=== PATIENT | male | born 1950 | race Caucasian/White ===

== ENCOUNTER → 2016-02-20 | Outpatient (CLI) | payer OTHER ==
[~2016-02-20] MED LIST: APIX1TAB3 PO; ASPI81TA21 PO; ATV/1 SL; CHLO50TA PO; CHOL1TAB42 PO; CYAN500T13 PO; FINA5TAB PO; FOLI1TAB8 PO; FURO40TA3 PO; HMLI SC; HYDR-5688 PO; IMDSR30 PO; INSDGI SC; INSDGIPEN SC; INSPMPHMLG SC; ISOS30TA3 PO; LISI40TA PO; MAGN400C2 PO; MELO15TA10 PO; METF1000 PO; METO-217 PO; POLY335025 PO; POTA1080 PO; POTA1TAB97 PO; ROSU5TAB PO; RXC5 PO; SENN8.6T7 PO; SPIR25TA PO; TAMS0.4C38 PO
[2016-02-20 13:14] LABS: BASO % 0.2 %; BASO ABS # 0.03 K/uL (0-0.2); COMPLETE YES; EOS % 1.9 %; HEMATOCRIT 46.1 % (42-52); IG% 0.5 %; LYMPH % 17.1 %; LYMPH ABS # 2.27 K/uL (1.2-3.4); MEAN CELL VOLUME 91.3 fL (80-100); MEAN CORPUSCULAR HEMOGLOBIN 32.9 pg (25-34); MEAN PLATELET VOLUME 11.1 fL (7.4-10.4); MONO % 9.6 %; NEUT % 70.7 %; PLATELET COUNT 217 K/uL (130-400); RED BLOOD COUNT 5.05 M/uL (4.7-6.1); WHITE BLOOD COUNT 13.29 K/uL (4.8-10.8)
[2016-02-20 13:23] LABS: PARTIAL THROMBOPLASTIN RATIO 1.1; PROTHROMBIN TIME (PATIENT) 10.6 SECONDS (9.0-12.0)
[2016-02-20 13:52] LABS: BLOOD UREA NITROGEN 29 mg/dl (7-18); CALCIUM 9.6 mg/dl (8.5-10.1); CARBON DIOXIDE 31 mmol/L (21-32); CHLORIDE 98 mmol/L (98-107); GLUCOSE 110 mg/dl (70-99); MAGNESIUM 1.9 mg/dl (1.8-2.4); POTASSIUM 3.3 mmol/L (3.5-5.1); SODIUM 139 mmol/L (136-145)
== END | disposition home or self-care (01) ==
LOC: C.LAB 12:08
PROVIDERS: ATTEND Internal Medicine Interventional Cardiology
DX: Z01.818 Encounter for other preprocedural examination (principal); I48.92 Unspecified atrial flutter

== ENCOUNTER → 2016-02-25 | Day surgery (SDC) | payer OTHER ==
[~2016-02-25] VITALS: Ht 185.4 cm; Wt 152.0 kg
[~2016-02-25] MED LIST changes: +ACETAMINOPHEN 325 MG TAB PO PRN; -ATV/1 SL; +FENTANYL CITRATE INJ 50 MCG/1 ML 2 ML VIAL ONE; -FOLI1TAB8 PO; +HEPARIN SOD (PORCINE) 1000 UNIT/ML 10 ML VIAL ONE; -HYDR-5688 PO; +MIDAZOLAM HCL 1 MG/ML 2ML VIAL ONE; +NITROGLYCERIN/D5W 100MCG/ML 20ML SYR ONE; +NiCARDipine HCL INJ 2.5 MG/ML 10 ML AMP ONE; -POLY335025 PO; -RXC5 PO; -SENN8.6T7 PO; +SODIUM CHLORIDE 0.9% 1000ML 1,000 ML IV SCH; -SPIR25TA PO
[2016-02-25 10:30] VITALS: BP 138/74; PULSE 65; TEMP 36.5; O2SAT 98; Ht 185.4 cm; Wt 152.0 kg
--- NOTE | 2016-02-25 12:30 | Procedure Note ---
Pre-Mod Sedation Assessment General Date of Moderate Sedation: Feb 25, 2016. Vital Signs: Vital Signs Past 12 Hours Date Time Temp Pulse Resp B/P Pulse Ox O2 Delivery O2 Flow Rate FiO2 02/25/16 12:16 60 16 140/72 95 Room Air 02/25/16 12:11 58 16 138/78 95 Room Air 02/25/16 10:30 36.5 65 16 138/74 98 Room Air Review Cardiovascular: regular rate, rhythm, no edema, no gallop, no JVD Abdomen: normal bowel sounds, non tender, soft Lungs: chest non-tender, lungs clear, normal breath sounds, no respiratory distress Airway Class: III Pre-Sedation Airway Assessment Oral Cavity: WNL Able to Visualize Vocal Cords: No Short Thick Neck: No Hx of Sleep Apnea: Yes Smoking Status: Former Smoker Mallampati Classification: Class III Procedure Planning Contraindications-for Mod Sed: None Yes Notes The planned sedation has been discussed with the patient and consent obtained. I have identified the patient, determined the appropriateness of sedation and have assessed the patient immediately prior to the procedure. All medicine(s) and interventions are by my order.
--- NOTE | 2016-02-25 12:31 | Procedure Note ---
Post-Mod Sedation Assessment General Date of Moderate Sedation Feb 25, 2016. Vital Signs: Vital Signs Past 12 Hours Date Time Temp Pulse Resp B/P Pulse Ox O2 Delivery O2 Flow Rate FiO2 02/25/16 12:16 60 16 140/72 95 Room Air 02/25/16 12:11 58 16 138/78 95 Room Air 02/25/16 10:30 36.5 65 16 138/74 98 Room Air Review - Discharge Criteria Vital Signs Stable: Yes Alert/Oriented/Conversant: Yes Returned to Baseline Mental St: Yes Nausea Absent/Minimal: Yes Pain/Discomfort/Absent/Minimal: Yes Normal/Baseline Respirations: Yes Active Bleeding?: No Pt Received D/C Instructions: Yes Prescriptions Given: Transmitted Specific Proced. D/C Criteria Distal Pulses Present (Cardiac: Yes Groin site assessed-Card Cath: N/A Voided Prior To Discharge: N/A Discharged Patients Adult Escort/Transportation: Yes
--- NOTE | 2016-02-25 12:42 | Discharge Instructions ---
Discharge Instructions Procedure Procedure Date: Feb 25, 2016. Reason for Visit: Cad * To Do*. Discharge Discharge Date: Feb 25, 2016. Discharge Diagnosis: Mild coronary artery disease, microvascular dysfunction Last Recorded Wt (Kilograms): 152 Anesthesia Post Anesthesia Instructions: After IV Sedation: * Do not drive today. May resume driving tomorrow * Do not make important decisions or sign legal documents today. * Call surgeon for: 1. Temperature elevations greater than 101 degrees F. 2. Uncontrollable pain. 3. Excessive bleeding. 4. Persistent nausea and vomiting. 5. Medication intolerance (nausea, vomiting or rash). * For nausea and vomiting use only clear liquids such as: tea, soda, bouillon until nausea subsides, then gradually increase diet as tolerated. * If you have any concerns or questions, call your surgeon's office. If physician is unavailable and it is an emergency, call 911 or go to the nearest emergency room. Instructions Activity Recommendations: limitations as noted below (Avoid flexing right wrist for next 24 hours. ), resume regular activity (In 48 hours), lifting limitation (Nothing heavier than 20lbs for next 48 hours), shower/bathe limit ( No soaking tub baths for next 72 hours) Recommended Home Diet: resume previous diet Allergies: Coded Allergies: Ciprofloxacin (Verified Adverse Reaction, Intermediate, DIAPHORETIC, NAUSEA, 12/25/15) Diclofenac (Verified Adverse Reaction, Intermediate, GO FROM ICE COLD TO HOT FLASHES, 12/25/15) Follow Up Follow-up with: Follow-up with Dr. Hunt as scheduled [facility] Recommendations: Call your doctor if: * Temperature above 101 degrees * Pain not relieved by pain medicine ordered * There is increased drainage or redness from any incision * You have any unanswered questions or concerns. Your Doctors Instructions noted above were prepared by provider Tyson Hunt. Patient Signature Section: Patient Instructions Signature Page Prem Buckner Patient (or Guardian) Signature/Date: I have read and understand the instructions given to me by my caregivers. Caregiver/RN/Doctor Signature/Date: The above-named patient and/or guardian has received patient instructions on this date. + Original Patient Signature Page (only) stays with chart. Please make copy for patient.
--- NOTE | 2016-02-25 12:54 | Cardiac Catheterization ---
Procedure Note Procedure Date Feb 25, 2016. Pre-Procedure Diagnosis Positive Stress Test, CAD AUC Score 7 Post-Procedure Diagnosis Mild CAD, Normal Intracardiac Pressures Procedure(s) Performed Coronary Angiography, Left Heart Cath Label Drier Dr. Hunt Maintenance And Utilities Supervisor(s) Salvatore Estimated Blood Loss 15 Medication(s) Fentanyl, Heparin, Nitroglycerin, Versed, Lidocaine 1% Summary of Findings Indication: Dyspnea on exertion/History of CAD/Indeterminant Stress Test Access: 5Fr Right Radial Artery Catheters: [place], JL3.5, Pigtail Findings: LM - Luminal irregularities LAD - Large vessel with luminal irregularities and sluggish flow Circumflex - Large vessel with luminal irregularities and sluggish flow Ramus - Small vessel with mild 20-30% ostial and mid segment stenosis, sluggish flow RCA - Dominant, large vessel, patent proximal stent with 40% in-stent restenosis , distal luminal irregularities, sluggish flow LVEDP - 11 Arterial Closure: TR Band Summary: 1. Mild-moderate coronary artery disease - Patent proximal RCA stent with 40% in-stent restenosis. 2. Diffuse sluggish flow suggestive of microvascular dysfunction 3. Normal intracardiac filling pressures Recommendations: Continue current ASA, statin Continue current diuretics and antihypertensive regimen Resume apixaban tonight Will add Imdur for microvascular dysfunction. Hemodynamics Rest Ao: 92/60/73 Final Ao: 99/61/77 LV: 105/2 Recommendations Medical therapy and/or Counseling Specimens None Radiation Exposure (mGy) 2303 Contrast (mls) 75 Opti Fluids (cc crystalloids) 75 Drains None Anesthesia Moderate Procedural Complication(s) None Disposition Delicatessen Manager Holding/Recovery ACC Data Cardiac Status Clinical evaluation leading to the procedure CAD Presntation: Stable angina, Positive Stress Test Anginal Classification: CCS III Heart Failure: No, NYHA Class: CCS I Cardiogenic Shock w/in 24Hrs: No Cardiac Arrest w/in 24Hrs: No Imaging studies past 6 months: Yes Standard Exercise Stress Test: No Stress Echocardiogram: Yes - Indeterminant Stress Testing w/SPECT MPI: No Cardiac CTA: No Coronary Anatomy Dominant: Right Left Main (% Stenosis): Normal LAD (% Stenosis): Normal Circumflex (% Stenosis): Normal RCA (% Stenosis): Proximal (40-50) Ramus (% Stenosis): Mid (30) Diagnostic Physician's Name: Hunt, Christopher R., MD Status: Elective Closure Device Percutaneous Entry Location: Radial Closure Device: Radial Band Recommendations: PCI without planned CABG Intraprocedure Events Significant Dissection: No Perforation: No
[2016-02-25 15:00] VITALS: BP 126/72; PULSE 56; O2SAT 98
== END | disposition home or self-care (01) ==
LOC: C.CATH 09:55
PROVIDERS: ATTEND Internal Medicine Interventional Cardiology
DX: I25.10 Atherosclerotic heart disease of native coronary artery without angina pectoris (principal); R94.39 Abnormal result of other cardiovascular function study; R06.00 Dyspnea, unspecified; E11.9 Type 2 diabetes mellitus without complications; Z79.4 Long term (current) use of insulin

== ENCOUNTER → 2016-03-19 | Outpatient (CLI) | payer OTHER ==
[~2016-03-19] MED LIST changes: -ACETAMINOPHEN 325 MG TAB PO PRN; -FENTANYL CITRATE INJ 50 MCG/1 ML 2 ML VIAL ONE; -HEPARIN SOD (PORCINE) 1000 UNIT/ML 10 ML VIAL ONE; -MELO15TA10 PO; -MIDAZOLAM HCL 1 MG/ML 2ML VIAL ONE; -NITROGLYCERIN/D5W 100MCG/ML 20ML SYR ONE; -NiCARDipine HCL INJ 2.5 MG/ML 10 ML AMP ONE; -SODIUM CHLORIDE 0.9% 1000ML 1,000 ML IV SCH
--- NOTE | 2016-03-19 10:12 | DIAGNOSTIC IMAGING REPORT ---
TWO VIEW CHEST CLINICAL HISTORY: Dyspnea. FINDINGS: PA and lateral chest radiographs are compared to study dated 12/21/2014. The heart is enlarged and there is atherosclerotic calcification of the thoracic aorta. Emphysematous change and chronic interstitial thickening is similar to previous. No airspace consolidation, pleural effusion, or pneumothorax is identified. The skeletal structures are osteopenic. There are healed left-sided rib fractures. Calcified joint bodies are suspected in the left shoulder. IMPRESSION: Cardiomegaly and emphysema with no active disease in the chest. Electronically signed by: Galindo Gonzales M.D. 03/19/2016 10:10 AM Dictated Date/Time: 03/19/2016 10:09 AM
== END | disposition home or self-care (01) ==
LOC: C.RAD 09:39
PROVIDERS: ATTEND Internal Medicine Pulmonary Disease
DX: R06.02 Shortness of breath (principal); J43.9 Emphysema, unspecified; I51.7 Cardiomegaly

== ENCOUNTER → 2016-03-24 | Outpatient (CLI) | payer OTHER ==
[2016-03-19 11:02] LABS: BLOOD UREA NITROGEN 32 mg/dl (7-18); BUN/CREATININE RATIO 24.9 (10-20)
[~2016-03-24] MED LIST changes: +OPTIRAY 320 IV PRN
--- NOTE | 2016-03-24 08:37 | DIAGNOSTIC IMAGING REPORT ---
CT SCAN OF THE CHEST WITH IV CONTRAST CLINICAL HISTORY: Atypical chest pain. COMPARISON STUDY: Chest x-ray dated 03/19/16. TECHNIQUE: Following the IV administration of 93 cc of Optiray 320, CT scan of the thorax was performed from the thoracic inlet to the upper abdomen. Images are reviewed in the axial, sagittal, and coronal planes. IV contrast was administered without complication. CT DOSE: 1101.42 mGy.cm FINDINGS: Thyroid: Imaged portions of the thyroid gland are normal in size and attenuation. There is a 1.8 cm low-attenuation nodule seen in the left lobe. Thoracic aorta: There is mild atherosclerotic calcification of the thoracic aorta. Mild intimal dilatation is noted involving the ascending thoracic aorta, which measures up to 4.6 cm in diameter. The remainder of the thoracic aorta is normal in caliber and demonstrates standard 3-vessel arch anatomy. No dissection is seen. Heart: The heart is enlarged and without pericardial effusion. The coronary arteries are calcified. The pulmonary trunk is normal in caliber. Lungs and pleural spaces: There is no airspace consolidation or pleural effusion. Atelectasis versus scarring is present the right lung base. A calcified granuloma seen in the right middle lobe. There are 2 perifissural nodules in the left lung seen on images #151 and #155. These measure up to 9 mm. The trachea and central airways appear clear. Mediastinum: There is no mediastinal lymphadenopathy. Mariah: Clear. Axillae: There is no axillary lymphadenopathy. Upper abdomen: The liver is enlarged and steatotic. There is a small hiatal hernia. Skeletal structures: Degenerative change is noted throughout the thoracic spine. No lytic or blastic bony lesions are seen. There are numerous healed left-sided rib fractures. Arthritic changes present in the shoulders, with large calcified joint bodies seen on the left. IMPRESSION: 1. There is no airspace consolidation or pleural effusion. 2. Cardiomegaly. 3. There is aneurysmal dilatation of the ascending thoracic aorta which measures 4.6 cm in diameter. Follow-up with a vascular surgeon is recommended. 4. There are 2 perifissural nodules in the left lung measuring up to 9 mm. These can be followed as per the Fleischner criteria. See below. 5. Hepatomegaly and hepatic steatosis. 6. There is a 1.8 cm low-attenuation nodule in the left lobe of the thyroid. Follow-up with a nonemergent thyroid ultrasound is recommended for further assessment. 7. Additional changes as above. Please refer to below summary of Fleischner criteria recommendations for follow-up of incidental CT nodules (Danielle Garcia, Guidelines for management of small pulmonary nodules detected on CT scans: A statement from the Fleischner Society, Radiology 237: [phone].) Low Risk Patient: Minimal or no smoking or other known risk factors for malignancy <=4 mm: No follow-up needed. >4-6 mm: Initial follow-up CT at 12 months; if unchanged, no further follow-up. >6-8 mm: Initial follow-up CT at 6-12 months then at 18-24 months if no change. >8 mm: Follow-up CT at \R\3, 9, 24 months, or PET and/or biopsy. High Risk Patient: History of smoking or other known risk factors <=4 mm: Follow-up at 12 months; if unchanged, no further follow-up. >4-6 mm: Initial follow-up CT at 6-12 months then at 18-24 months if no change. >6-8 mm: Initial follow-up CT at 3-6 months then at 9-12 and 24 months if no change. >8 mm: Same as low risk patient. Note: Nodule size measured as average of length and width. Ground glass or partly solid nodules may require longer follow-up to exclude indolent adenocarcinoma. Electronically signed by: Galindo Gonzales M.D. 03/24/2016 8:36 AM Dictated Date/Time: 03/24/2016 8:28 AM
== END | disposition home or self-care (01) ==
LOC: C.CTS 07:48
PROVIDERS: ATTEND Internal Medicine Pulmonary Disease
DX: R07.81 Pleurodynia (principal)

== ENCOUNTER → 2016-03-30 | Outpatient (CLI) | payer OTHER ==
[~2016-03-30] MED LIST changes: -OPTIRAY 320 IV PRN
--- NOTE | 2016-03-30 09:11 | DIAGNOSTIC IMAGING REPORT ---
THYROID ULTRASOUND HISTORY: E04.1 Thyroid [id number] COMPARISON: Chest CT 03/24/2016. FINDINGS: Right lobe: 5.2 x 2.1 x 2.3 cm. There are 2 subcentimeter hypoechoic nodules with the largest in the upper pole measuring 6 mm. Left lobe: 4.9 x 2.6 x 2.4 cm. There are 2 hypoechoic solid nodules with the largest in the interpolar region measuring 1.8 x 1.4 x 1.5 cm. The upper pole nodule measures 1.2 x 1.0 x 1.4 cm. Isthmus: 1.1 cm thickness. No nodules. IMPRESSION: Multinodular thyroid as described above with the largest in the interpolar region of the left lobe measuring 1.8 cm. Ultrasound-guided fine aspiration of this nodule is recommended for further evaluation. Electronically signed by: Carlos Yao M.D. 03/30/2016 9:09 AM Dictated Date/Time: 03/30/2016 9:08 AM
== END | disposition home or self-care (01) ==
LOC: C.ULTR 08:18
PROVIDERS: ATTEND Internal Medicine
DX: E04.1 Nontoxic single thyroid nodule (principal)

== ENCOUNTER → 2016-04-16 | Outpatient (CLI) | payer OTHER ==
--- NOTE | 2016-04-16 11:10 | DIAGNOSTIC IMAGING REPORT ---
ULTRASOUND-GUIDED LEFT LOBE THYROID FINE-NEEDLE ASPIRATION BIOPSY CLINICAL HISTORY: Thyroid nodule. COMPARISON STUDY: Ultrasound study dated March 30, 2016 FINDINGS: A timeout was performed. The risks of procedure was explained to the patient and informed consent was obtained. The patient was prepped in a sterile fashion. The left neck over the biopsy entry site was anesthetized with 1% lidocaine. Under ultrasound guidance, 3 passes with a 25-gauge needle were performed into the left lobe nodule in question. Initial pathologic review indicates satisfactory material for diagnosis. There were no immediate complications. IMPRESSION: Successful ultrasound-guided fine-needle aspiration biopsy of a dominant left lobe thyroid nodule. Electronically signed by: Andrzej Maciel M.D. 04/16/2016 11:09 AM Dictated Date/Time: 04/16/2016 11:06 AM
== END | disposition home or self-care (01) ==
LOC: C.ULTR 09:21
PROVIDERS: ATTEND Internal Medicine
DX: E04.1 Nontoxic single thyroid nodule (principal)

== ENCOUNTER 2016-04-24 12:54 | Emergency (ER) | payer OTHER ==
[~2016-04-24] VITALS: Ht 185.4 cm; Wt 155.1 kg
[~2016-04-24 12:54] MED LIST changes: -INSDGIPEN SC; -INSPMPHMLG SC; -ISOS30TA3 PO
[2016-04-24 13:05] VITALS: TEMP 36.8; Ht 185.4 cm; Wt 155.1 kg
[2016-04-24 13:17] VITALS: O2SAT 95
[2016-04-24] MEDS ORDERED: METOPROLOL TARTRATE 1 MG/ML VIAL IV STA (13:38)
[2016-04-24 13:46] LABS: BASO % 0.5 %; BASO ABS # 0.05 K/uL (0-0.2); COMPLETE YES; EOS % 2.4 %; HEMATOCRIT 47.5 % (42-52); IG% 0.5 %; LYMPH % 21.3 %; LYMPH ABS # 2.25 K/uL (1.2-3.4); MEAN CELL VOLUME 89.8 fL (80-100); MEAN CORPUSCULAR HEMOGLOBIN 32.7 pg (25-34); MEAN CORPUSCULAR HGB CONC 36.4 g/dl (32-36); MEAN PLATELET VOLUME 10.4 fL (7.4-10.4); MONO % 7.2 %; NEUT % 68.1 %; PLATELET COUNT 211 K/uL (130-400); RED BLOOD COUNT 5.29 M/uL (4.7-6.1); WHITE BLOOD COUNT 10.57 K/uL (4.8-10.8)
--- NOTE | 2016-04-24 13:47 | EMERGENCY ROOM VISIT NOTE ---
History Report prepared by Neeta: Marcie Mir Under the Supervision of: Dr. Camron Mcgraw M.D. First contact with patient: 13:25 Chief Complaint: IRREGULAR HEARTBEAT Stated Complaint: A FIB Nursing Triage Summary: Pt presents with left sided chest pain and sob. States dx in Dec with sole. Took pulse at home this morning and it was 120-129. History of Present Illness The patient is a 65 year old male who presents to the Emergency Room with complaints of a persistent irregular heart rate that began at 1017 this morning suddenly. He currently rates his discomfort as a 5/10 in severity. Per the patient's , the patient was cleaning off the cars this morning and when he returned inside, he was having difficulty breathing and his lips were turning blue. The patient associates chest pain that he describes as a pressure with his symptoms today. The patient states that he has a history of atrial fibrillation, but sates that he is typically in sinus rhythm. He states that he has been following with Dr. Hunt, Cardiology, noting that he had a recent heart catheterization. The patient notes that he takes Eliquis and metoprolol for his atrial fibrillation. He notes that he has had recent weight gain due to his thyroid problems and diabetes. Source of History: patient, spouse/significant other () Onset: 1017 this mroning Position: other (global) Symptom Intensity: 5/10 Quality: other (irregular heart rate) Timing: other (persistent, suddenly) Associated Symptoms: + SOB, + chest pain Note: Associated Symptoms: recent weight gain, lips turning blue Review of Systems All systems have been listed, reviewed, and are negative other than those previously mentioned. Please see Additional Medical History Sheet. Past Medical & Surgical Medical Problems: (1) Atrial flutter with rapid ventricular response (2) Congestive heart failure (3) Coronary artery disease (4) Diabetes (5) Dyslipidemia (6) Heart disease (7) Hypertension (8) Kidney disease Surgical Problems: (1) H/O hernia repair (2) History of appendectomy (3) History of carpal tunnel surgery of left wrist (4) History of cataract surgery (5) Hx of cardiac catheterization (6) Post-operative state (7) S/P cardiac catheterization (8) Status post left hip replacement (9) Status post left knee replacement (10) Status post right knee replacement Family History Cancer Social History Smoking Status: Former Smoker Smokeless Tobacco Use: No Alcohol Use: none Marital Status: Housing Status: lives with family Occupation Status: employed Current/Historical Medications Scheduled Apixaban (Eliquis), 5 MG PO BID Aspirin Enteric Coated (Ecotrin Or Generic), 81 MG PO QPM Chlorthalidone (Chlorthalidone), 10 MG PO QAM Cholecalciferol (Vitamin D), 1 TAB PO QAM Cyanocobalamin (Vitamin B12 500MCG), 1,000 MCG PO QAM Finasteride (Proscar), 5 MG PO QAM Furosemide (Lasix), 40 MG PO QAM Insulin Glargine (Lantus Solostar), 5 UNITS SC DAILY Insulin Human Lispro (Humalog), 7 UNITS SC UD Isosorbide Mononitrate Ext Rel (Imdur Ext Rel), 30 MG PO DAILY Lisinopril (Zestril), 40 MG PO QAM Magnesium Oxide (Magnesium Oxide), 400 MG PO BID Metformin Hcl (Glucophage), 1,000 MG PO BID Metoprolol Succinate (Toprol Xl), 50 MG PO DAILY Potassium Chloride (K-Tab), 20 MEQ PO TID Potassium Citrate (Alkalinizer (Potassium Citrate ER), 3 TAB PO AMPM Rosuvastatin Calcium (Crestor), 5 MG PO 2XWK Tamsulosin Hcl (Flomax), 0.4 MG PO HS Allergies Coded Allergies: Ciprofloxacin (Verified Adverse Reaction, Intermediate, DIAPHORETIC, NAUSEA, 12/25/15) Diclofenac (Verified Adverse Reaction, Intermediate, GO FROM ICE COLD TO HOT FLASHES, 12/25/15) Physical Exam Vital Signs Date Time Temp Pulse Resp B/P Pulse Ox O2 Delivery O2 Flow Rate FiO2 04/24/16 16:19 98 20 98/78 94 Room Air 04/24/16 15:14 107 04/24/16 14:18 98 24 104/62 94 Nasal Cannula 2.0 04/24/16 13:44 125 109/66 04/24/16 13:17 124 04/24/16 13:17 95 Room Air 04/24/16 13:05 36.8 125 18 124/76 91 Room Air Physical Exam GENERAL: Patient awake, alert, oriented x 3. Patient follows commands. Patient does not appear toxic. Patient is adequately hydrated and well- nourished. SKIN: No erythema, pallor, cyanosis or rash HEENT: Normal head, pupils equal, reactive to light and accommodation. Neck: Without adenopathy, no neck vein distention. LUNGS: Clear to auscultation. No wheezes, no rales, no rhonchi. HEART: Regular rhythm, rapid rate. No murmurs. No gallops. No rubs ABDOMEN: Obese. No masses, no rebound, no hepatomegaly or splenomegaly. EXTREMITIES: 1+ pretibial edema. No signs of trauma. No calf or thigh tenderness. NEUROLOGIC: Cranial nerves II-XII within normal limits. No gross motor sensory function deficits. Medical Decision & Procedures ER Provider Diagnostic Interpretation: X ray results are stated below per my interpretation and the radiologist's interpretation. SINGLE VIEW CHEST CLINICAL HISTORY: Atrial flutter. FINDINGS: 2 AP, portable, upright chest radiographs are compared to study dated 03/19/16 and correlated with chest CT dated 03/24/16. The heart is enlarged and there is atherosclerotic calcification of the thoracic aorta. The pulmonary vasculature is noncongested. Chronic interstitial thickening is unchanged. No airspace consolidation or pleural effusion is identified. No pneumothorax is seen. The skeletal structures are osteopenic. There are healed left-sided rib fractures. IMPRESSION: Cardiomegaly with no acute cardiopulmonary abnormality. Electronically signed by: Galindo Gonzales M.D. 04/24/2016 2:17 PM Dictated Date/Time: 04/24/2016 2:15 PM Laboratory Results 04/24/16 13:25 Red Blood Count 5.29, Mean Corpuscular Volume 89.8, Mean Corpuscular Hemoglobin 32.7, Mean Corpuscular Hemoglobin Concent 36.4, Mean Platelet Volume 10.4, Neutrophils (%) (Auto) 68.1, Lymphocytes (%) (Auto) 21.3, Monocytes (%) (Auto) 7.2, Eosinophils (%) (Auto) 2.4, Basophils (%) (Auto) 0.5, Neutrophils # (Auto) 7.21, Lymphocytes # (Auto) 2.25, Monocytes # (Auto) 0.76, Eosinophils # (Auto) 0.25, Basophils # (Auto) 0.05 04/24/16 13:25 Test 04/24/16 13:25 White Blood Count 10.57 K/uL (4.8-10.8) Red Blood Count 5.29 M/uL (4.7-6.1) Hemoglobin 17.3 g/dL (14.0-18.0) Hematocrit 47.5 % (42-52) Mean Corpuscular Volume 89.8 fL (80-100) Mean Corpuscular Hemoglobin 32.7 pg (25-34) Mean Corpuscular Hemoglobin Concent 36.4 g/dl (32-36) Platelet Count 211 K/uL (130-400) Mean Platelet Volume 10.4 fL (7.4-10.4) Neutrophils (%) (Auto) 68.1 % Lymphocytes (%) (Auto) 21.3 % Monocytes (%) (Auto) 7.2 % Eosinophils (%) (Auto) 2.4 % Basophils (%) (Auto) 0.5 % Neutrophils # (Auto) 7.21 K/uL (1.4-6.5) Lymphocytes # (Auto) 2.25 K/uL (1.2-3.4) Monocytes # (Auto) 0.76 K/uL (0.11-0.59) Eosinophils # (Auto) 0.25 K/uL (0-0.5) Basophils # (Auto) 0.05 K/uL (0-0.2) RDW Standard Deviation 44.1 fL (36.4-46.3) RDW Coefficient of Variation 13.5 % (11.5-14.5) Immature Granulocyte % (Auto) 0.5 % Immature Granulocyte # (Auto) 0.05 K/uL (0.00-0.02) Prothrombin Time 10.2 SECONDS (9.0-12.0) Prothromb Time International Ratio 1.0 (0.9-1.1) Activated Partial Thromboplast Time 27.5 SECONDS (21.0-31.0) Partial Thromboplastin Ratio 1.1 Anion Gap 15.0 mmol/L (3-11) Est Creatinine Clear Calc Drug Dose 86.9 ml/min Estimated GFR () 65.9 Estimated GFR (Non- 56.9 BUN/Creatinine Ratio 18.2 (10-20) Calcium Level 9.6 mg/dl (8.5-10.1) Total Bilirubin 0.6 mg/dl (0.2-1) Aspartate Amino Transf (AST/SGOT) 17 U/L (15-37) Alanine Aminotransferase (ALT/SGPT) 23 U/L (12-78) Alkaline Phosphatase 57 U/L (45-117) Troponin I 0.048 ng/ml (0-0.045) Total Protein 7.1 gm/dl (6.4-8.2) Albumin 3.7 gm/dl (3.4-5.0) Globulin 3.4 gm/dl (2.5-4.0) Albumin/Globulin Ratio 1.1 (0.9-2) Laboratory results as stated above per my review. Medications Administered Medications (Trade) Dose Ordered Sig/Tara Route Start Time Stop Time Status Last Admin Dose Admin Metoprolol Tartrate (Lopressor Iv) 15 mg NOW STAT IV 04/24/16 13:38 04/24/16 13:40 DC 04/24/16 13:44 15 MG ECG Indication: other (irregular heart rate) Rate (beats per minute): 125 Rhythm: atrial flutter Findings: no acute ischemic change, other (2-1 block) ED Course 1332: Past medical records reviewed. The patient was evaluated in room B10. A complete history and physical examination was performed. 1338: Ordered Metoprolol Tartrate 15 mg IV. 1515: I reevaluated the patient and he is still tachycardic. 1528: I discussed the patients case with Dr. Hunt, Cardiology. He is going to come see the patient. 1623: I reevaluated the patient and he is doing well. I discussed the exam findings and I discussed the treatment plan. He verbalized complete understanding and agreement. He is ready to go home. Medical Decision Nurses notes reviewed. Medical history sheet reviewed. Differential diagnosis includes but is not limited to: atrial flutter, atrial fibrillation, sinus tachycardia, acute cardiac decompensation, metabolic disorder, anemia. The patient arrived here with atrial flutter with 2-1 block. Rate was approximately 125. Patient has some pressure in his chest. Multiple labs, EKG and imaging were obtained. Please see above. The patient's prior history of atrial fibrillation. He is on an anticoagulant. The patient was given metoprolol 3. It did temporarily slow his rate. I discussed care with Dr. Hunt his manufacturing technologist. He also saw the patient here in the ED. The patient was felt safe to return home. He will be managed by Dr. Hunt. Consults Time Called: 152 Consulting Physician: Dr. Hunt, Cardiology Returned Call: [phone] I discussed the patients case with Dr. Hunt, Cardiology. He is going to come see the patient. Impression Primary Impression: Atrial flutter with rapid ventricular response Scribe Attestation The scribe's documentation has been prepared under my direction and personally reviewed by me in its entirety. I confirm that the note above accurately reflects all work, treatment, procedures, and medical decision making performed by me. Departure Information Dispostion Home / Self-Care Referrals RV. Garcia MD (PCP) Forms HOME CARE DOCUMENTATION FORM, IMPORTANT VISIT INFORMATION Patient Instructions ED Paroxysmal Atrial Flutter, My [facility] Additional Instructions Increase your metoprolol as per Dr. Hunt. Continue your other medications as prescribed. Return here immediately if you are feeling more short of breath or develop more chest pain.
[2016-04-24 13:59] LABS: PARTIAL THROMBOPLASTIN RATIO 1.1; PROTHROMBIN TIME (PATIENT) 10.2 SECONDS (9.0-12.0)
[2016-04-24 14:10] LABS: BUN/CREATININE RATIO 18.2 (10-20); CALCIUM 9.6 mg/dl (8.5-10.1); CREATININE 1.3 mg/dl (0.60-1.40); POTASSIUM 3.5 mmol/L (3.5-5.1)
[2016-04-24 14:15] LABS: ALB/GLOB RATIO 1.1 (0.9-2)
--- NOTE | 2016-04-24 14:18 | DIAGNOSTIC IMAGING REPORT ---
SINGLE VIEW CHEST CLINICAL HISTORY: Atrial flutter. FINDINGS: 2 AP, portable, upright chest radiographs are compared to study dated 03/19/16 and correlated with chest CT dated 03/24/16. The heart is enlarged and there is atherosclerotic calcification of the thoracic aorta. The pulmonary vasculature is noncongested. Chronic interstitial thickening is unchanged. No airspace consolidation or pleural effusion is identified. No pneumothorax is seen. The skeletal structures are osteopenic. There are healed left-sided rib fractures. IMPRESSION: Cardiomegaly with no acute cardiopulmonary abnormality. Electronically signed by: Galindo Gonzales M.D. 04/24/2016 2:17 PM Dictated Date/Time: 04/24/2016 2:15 PM
[2016-04-24] MEDS ORDERED: INSPMPHMLG SC (14:21)
[2016-04-24] MEDS ORDERED: ISOS30TA3 PO (14:21)
[2016-04-24] MEDS ORDERED: INSDGIPEN SC (14:21)
[2016-04-24 16:19] VITALS: BP 98/78; PULSE 98; O2SAT 94
[2016-05-01] MEDS ORDERED: ISOS30TA3 PO (06:58)
[2016-05-01] MEDS ORDERED: POTA1080 PO (06:58)
== END 2016-04-24 16:30 | disposition home or self-care (01) ==
LOC: C.EDB 12:55
DX: I48.0 Paroxysmal atrial fibrillation (principal); I50.9 Heart failure, unspecified; I25.10 Atherosclerotic heart disease of native coronary artery without angina pectoris; E11.9 Type 2 diabetes mellitus without complications; E78.5 Hyperlipidemia, unspecified; I10 Essential (primary) hypertension; N28.9 Disorder of kidney and ureter, unspecified; Z96.653 Presence of artificial knee joint, bilateral; Z96.642 Presence of left artificial hip joint; Z80.9 Family history of malignant neoplasm, unspecified; Z87.891 Personal history of nicotine dependence; Z79.82 Long term (current) use of aspirin; Z79.4 Long term (current) use of insulin; Z79.899 Other long term (current) drug therapy

== ENCOUNTER → 2016-05-01 | Day surgery (SDC) | payer OTHER ==
[~2016-05-01] VITALS: Ht 185.4 cm; Wt 152.0 kg
[~2016-05-01] MED LIST changes: -HMLI SC; -IMDSR30 PO; -INSDGI SC; +INSDGIPEN SC; +INSPMPHMLG SC; +ISOS30TA3 PO; +PROPOFOL IV EMULSION 10 MG/ML 20 ML VIAL IV ONE
[2016-05-01 06:59] VITALS: BP 131/67; PULSE 64; TEMP 36.7; O2SAT 94; Ht 185.4 cm; Wt 152.0 kg
--- NOTE | 2016-05-01 07:47 | Discharge Instructions ---
Discharge Instructions Procedure Procedure Date: May 01, 2016. Reason for Visit: Atrial Flutter *Hunt To Do* W/ Anesthesia. Discharge Discharge Date: May 01, 2016. Discharge Diagnosis: Atrial flutter Last Recorded Wt (Kilograms): 152 Anesthesia Post Anesthesia Instructions: If you have had General Anesthesia or IV Sedation: * Do not drive today. * Resume driving when surgeon permits. * Do not make important decisions or sign legal documents today. * Call surgeon for: 1. Temperature elevations greater than 101 degrees F. 2. Uncontrollable pain. 3. Excessive bleeding. 4. Persistent nausea and vomiting. 5. Medication intolerance (nausea, vomiting or rash). * For nausea and vomiting use only clear liquids such as: tea, soda, bouillon until nausea subsides, then gradually increase diet as tolerated. * If you have any concerns or questions, call your surgeon's office. If physician is unavailable and it is an emergency, call 911 or go to the nearest emergency room. Instructions Activity Recommendations: resume regular activity Recommended Home Diet: resume previous diet Allergies: Coded Allergies: Ciprofloxacin (Verified Adverse Reaction, Intermediate, DIAPHORETIC, NAUSEA, 12/25/15) Diclofenac (Verified Adverse Reaction, Intermediate, GO FROM ICE COLD TO HOT FLASHES, 12/25/15) Follow Up Additional Instructions: Continue Toprol XL 50mg twice daily. If excessive fatigue can reduce to 50mg once daily Follow-up with: [facility] 2-3 months. Luis Enrique Dickson Recommendations: Call your doctor if: * Temperature above 101 degrees * Pain not relieved by pain medicine ordered * There is increased drainage or redness from any incision * You have any unanswered questions or concerns. Your Doctors Instructions noted above were prepared by provider Tyson Hunt. Patient Signature Section: Patient Instructions Signature Page Prem Buckner Patient (or Guardian) Signature/Date: I have read and understand the instructions given to me by my caregivers. Caregiver/RN/Doctor Signature/Date: The above-named patient and/or guardian has received patient instructions on this date. + Original Patient Signature Page (only) stays with chart. Please make copy for patient.
--- NOTE | 2016-05-01 07:49 | Procedure Note ---
Procedure Note Procedure Date May 01, 2016. Procedure Description Procedure Name: External DC Cardioversion Patient presented for cardioversion for persistent, symptomatic atrial flutter. Upon presentation noted to be in sinus rhythm. Patient noted change in symptoms the morning of presentation. NO CARDIOVERSION PREFORMED. NO SEDATION ADMINISTERED. Discharged to home on continued beta-evangelina and Eliquis. Plan for continue cardiology follow-up.
== END | disposition home or self-care (01) ==
LOC: C.CATH 06:22
PROVIDERS: ATTEND Internal Medicine Interventional Cardiology
DX: I48.92 Unspecified atrial flutter (principal); I25.10 Atherosclerotic heart disease of native coronary artery without angina pectoris; I50.30 Unspecified diastolic (congestive) heart failure; E66.01 Morbid (severe) obesity due to excess calories; E11.39 Type 2 diabetes mellitus with other diabetic ophthalmic complication; G47.33 Obstructive sleep apnea (adult) (pediatric); Z79.4 Long term (current) use of insulin; Z79.82 Long term (current) use of aspirin; Z80.0 Family history of malignant neoplasm of digestive organs; Z80.42 Family history of malignant neoplasm of prostate; Z82.49 Family history of ischemic heart disease and other diseases of the circulatory system; Z82.3 Family history of stroke

== ENCOUNTER → 2016-06-09 | Outpatient (CLI) | payer OTHER ==
[~2016-06-09] MED LIST changes: +ATV/1 SL; +FOLI1TAB7 PO; +HYDR-5688 PO; +INSDGI SC; +POLY335025 PO; -PROPOFOL IV EMULSION 10 MG/ML 20 ML VIAL IV ONE; +RXC5 PO; +SENN8.6T7 PO; +SPIR25TA PO
--- NOTE | 2016-06-09 15:59 | DIAGNOSTIC IMAGING REPORT ---
LEFT SHOULDER 3 VIEWS HISTORY: M25.512 Left shoulder [id number] COMPARISON: None. FINDINGS: There is no acute fracture or dislocation. The left clavicle is intact. Supraspinatus calcific tendinitis. Intra-articular loose bodies at the subcoracoid space. Severe cartilage space narrowing with [id number] articulation, subchondral sclerosis, and marginal osteophytes at the glenohumeral joint. This is consistent with osteoarthritis. IMPRESSION: 1. No acute fracture or dislocation within the left shoulder. 2. Severe glenohumeral joint osteoarthritis. 3. Multiple calcific densities overlying the scapula consistent with intra-articular loose bodies. Electronically signed by: Carlos Yao M.D. 06/09/2016 3:56 PM Dictated Date/Time: 06/09/2016 3:55 PM
[2016-06-10 06:34] LABS: ESTIMATED AVERAGE GLUCOSE 131 mg/dl; HA1C FLAG Normal (Normal)
== END | disposition home or self-care (01) ==
LOC: C.RAD 15:18
PROVIDERS: ATTEND Internal Medicine
DX: E11.9 Type 2 diabetes mellitus without complications (principal); M25.512 Pain in left shoulder

== ENCOUNTER → 2016-08-21 | Outpatient (CLI) | payer OTHER ==
[~2016-08-21] MED LIST changes: -ATV/1 SL; -FOLI1TAB7 PO; -HYDR-5688 PO; -INSDGI SC; -POLY335025 PO; -RXC5 PO; -SENN8.6T7 PO; -SPIR25TA PO
--- NOTE | 2016-08-21 09:26 | DIAGNOSTIC IMAGING REPORT ---
(CHEST) THORAX WITHOUT CLINICAL HISTORY: 65 years-old Male presenting with LUNG NODULE. TECHNIQUE: Multidetector CT imaging of the chest was performed without the use of intravenous contrast. IV contrast: None. COMPARISON: 03/24/2016. CT DOSE: The estimated cumulative dose is 1233.93 mGy.cm. FINDINGS: On soft tissue windows, a 2.1 cm hypodense nodule noted in the left lobe of the thyroid, which may be slightly increased in size from prior exam. No axillary, supraclavicular, or mediastinal lymphadenopathy. Evaluation for hilar lymphadenopathy is limited without intravenous contrast. Mild atherosclerosis of the aortic arch. Ectasia of the ascending aorta, which measures 4.7 cm in maximal transverse dimension. Normal heart size. Coronary artery calcification. No pericardial or pleural effusion. Upper abdomen demonstrates hepatic steatosis. On lung windows, minimal dependent subpleural bandlike opacity in the right lower lobe, likely atelectasis. Multiple bilateral pulmonary nodules enumerated below: -6 mm ovoid perifissural nodule at the superior segment of the right lower lobe (series 4 image 110). -Triangular perifissural 4 mm nodule in the azygoesophageal recess of the right upper lobe (series 4 image 88). -Minimal nodular thickening along the right major fissure noted in the more inferior right lower lobe (series 4 image 145). -Old calcified granuloma in the right middle lobe noted. -Perifissural 7 mm nodule in the left upper lobe (series 4 image 143). -Adjacent smaller perifissural nodule measuring 4 mm in the left lower lobe (series 4 image 146). These nodules are unchanged in size and appearance from prior exam. Airways patent. On bone windows, degenerative changes of the thoracic spine. Deformities of the posterior lateral left sixth through eighth ribs likely old healed fractures. IMPRESSION: 1. Multiple bilateral perifissural pulmonary nodules, the largest measuring 7 mm in the left upper lobe, unchanged from prior. These could be benign and represent unencapsulated lymphoid tissue, although they are indeterminate and follow-up is warranted per [employer] 2017 recommendations. In a low or high risk patient, follow-up chest CT 18-24 months after an additional CT could be considered. 2. Ectasia of the descending aorta measuring 4.7 cm in diameter. 3. 2.1 cm left thyroid lobe nodule, which may be slightly increased in size from prior exam. Thyroid ultrasound could be considered for further evaluation. 4. Hepatic steatosis. Electronically signed by: Eliot Carney 08/21/2016 9:25 AM Dictated Date/Time: 08/21/2016 9:07 AM
== END | disposition home or self-care (01) ==
LOC: C.CTS 08:50
PROVIDERS: ATTEND Internal Medicine Pulmonary Disease
DX: R91.1 Solitary pulmonary nodule (principal); R91.8 Other nonspecific abnormal finding of lung field; I77.819 Aortic ectasia, unspecified site; E04.1 Nontoxic single thyroid nodule; K76.0 Fatty (change of) liver, not elsewhere classified

== ENCOUNTER → 2016-08-27 | Outpatient (CLI) | payer OTHER ==
[2016-08-27 12:27] LABS: BASO % 0.6 %; BASO ABS # 0.05 K/uL (0-0.2); COMPLETE YES; EOS % 2.1 %; HEMATOCRIT 42.4 % (42-52); IG% 0.5 %; LYMPH % 26.1 %; LYMPH ABS # 2.26 K/uL (1.2-3.4); MEAN CORPUSCULAR HEMOGLOBIN 33.1 pg (25-34); MEAN CORPUSCULAR HGB CONC 35.6 g/dl (32-36); MEAN PLATELET VOLUME 10.6 fL (7.4-10.4); MONO % 6.9 %; NEUT % 63.8 %; PLATELET COUNT 218 K/uL (130-400); RED BLOOD COUNT 4.56 M/uL (4.7-6.1); WHITE BLOOD COUNT 8.66 K/uL (4.8-10.8)
[2016-08-27 12:44] LABS: BLOOD UREA NITROGEN 29 mg/dl (7-18); BUN/CREATININE RATIO 26.4 (10-20); CALCIUM 9.3 mg/dl (8.5-10.1); CARBON DIOXIDE 30 mmol/L (21-32); CHLORIDE 101 mmol/L (98-107); GLUCOSE 116 mg/dl (70-99); MAGNESIUM 1.8 mg/dl (1.8-2.4); POTASSIUM 3.5 mmol/L (3.5-5.1); SODIUM 140 mmol/L (136-145)
== END | disposition home or self-care (01) ==
LOC: C.LAB 09:58
PROVIDERS: ATTEND Internal Medicine
DX: M79.1 Myalgia (principal); E83.42 Hypomagnesemia

== ENCOUNTER → 2017-01-01 | Outpatient (CLI) | payer OTHER ==
[~2017-01-01] MED LIST changes: +ATV/1 SL; +FOLI1TAB7 PO; +HYDR-5688 PO; +INSDGI SC; -INSDGIPEN SC; -ROSU5TAB PO
--- NOTE | 2017-01-01 21:06 | DIAGNOSTIC IMAGING REPORT ---
MRI OF THE LEFT SHOULDER WITHOUT CONTRAST CLINICAL HISTORY: Persistent left shoulder pain. COMPARISON STUDY: Left shoulder radiographs June 09, 2016. TECHNIQUE: Utilizing a 1.5 Cammy magnet and dedicated coil, multiplanar, multiecho imaging of the left shoulder was performed without intravenous or intra-articular contrast. FINDINGS: Exam is moderately compromised by motion artifact. Alignment of the left shoulder is anatomic. There is severe osteoarthritis of the left glenohumeral and acromioclavicular joints. With marked joint space narrowing and osteophytosis There is a small left shoulder joint effusion. Numerous intra-articular loose bodies are noted. A 1.5 cm loose body within the subcoracoid space is noted. No suspicious marrow replacement is present. There is no fracture or marrow edema. The proximal long head of biceps tendon is intact. There is a complex labral tear which is likely chronic. This involves the majority of the glenoid labrum. Extensive tendinopathy of distal supraspinatus and infraspinatus is noted with multiple partial thickness tears of distal supraspinatus and infraspinatus. The supraspinous tears or high grade at a full-thickness tear would be difficult to exclude on this examination. There is no tendon retraction or muscular atrophy of supraspinatus or infraspinatus. A suspected partial thickness tear subscapularis is noted. Teres minor is intact. IMPRESSION: 1. Severe osteoarthritis of the left glenohumeral and acromioclavicular joints with multiple intra-articular loose bodies. 2. Extensive tendinopathy of distal supraspinatus and infraspinatus with several high-grade partial-thickness tears of supraspinatus and interstitial tears within infraspinatus. A full-thickness supraspinatus tear would be difficult to exclude. No tendon retraction or muscular atrophy. 3. Complex glenoid labral tear. Electronically signed by: Dimas Kohler M.D. 01/01/2017 9:04 PM Dictated Date/Time: 01/01/2017 4:46 PM
== END | disposition home or self-care (01) ==
LOC: C.MRIBC 14:28
PROVIDERS: ATTEND Orthopaedic Surgery Sports Medicine
DX: S43.491A Other sprain of right shoulder joint, initial encounter (principal); X58.XXXA Exposure to other specified factors, initial encounter; M19.012 Primary osteoarthritis, left shoulder; M75.82 Other shoulder lesions, left shoulder

== ENCOUNTER 2017-01-13 06:47 | Inpatient (IN) | payer OTHER ==
[2016-12-29 14:18] VITALS: BMI 46.0
--- NOTE | 2016-12-29 15:08 | PAT Medication Instructions ---
Service Date Dec 29, 2016. Current Home Medication List Apixaban (Eliquis), 5 MG PO BID Aspirin Enteric Coated (Ecotrin Or Generic), 81 MG PO QPM Chlorthalidone (Chlorthalidone), 100 MG PO QAM Cholecalciferol (Vitamin D), 1 TAB PO QAM Cyanocobalamin (Vitamin B12 500MCG), 1,000 MCG PO QAM Finasteride (Proscar), 5 MG PO QAM Folic Acid (Folvite), 1 MG PO QAM Furosemide (Lasix), 40 MG PO QAM Hydrocodone/Acetaminophen 5MG/325MG (Reno 5MG/325MG), 2 TABLETS PO HS PRN for N Insulin Glargine (Lantus), 85 UNITS SC QPM Insulin Human Lispro (Humalog), 18 UNITS SC AM/PM Isosorbide Mononitrate Ext Rel (Imdur Ext Rel), 1 TAB PO QAM Lisinopril (Zestril), 40 MG PO QAM Lorazepam (Ativan), 1 MG SL Magnesium Oxide (Magnesium Oxide), 400 MG PO BID Metformin Hcl (Glucophage), 1,000 MG PO BID Metoprolol Succinate (Toprol Xl), 50 MG PO BID Potassium Chloride (K-Tab), 20 MEQ PO BID Potassium Citrate (Alkalinizer (Potassium Citrate ER), 12 TAB PO TID Tamsulosin Hcl (Flomax), 0.4 MG PO HS Medication Instructions For Your Scheduled Surgery - Hold the following medications 2 days prior to surgery per cardiology instructions: Apixaban (Eliquis), 5 MG PO BID - Hold the following medications 48 hours prior to surgery: Metformin Hcl (Glucophage), 1,000 MG PO BID - Hold the following medications the morning of surgery: Chlorthalidone (Chlorthalidone), 100 MG PO QAM Cholecalciferol (Vitamin D), 1 TAB PO QAM Cyanocobalamin (Vitamin B12 500MCG), 1,000 MCG PO QAM Lisinopril (Zestril), 40 MG PO QAM Folic Acid (Folvite), 1 MG PO QAM Furosemide (Lasix), 40 MG PO QAM Magnesium Oxide (Magnesium Oxide), 400 MG PO BID Potassium Chloride (K-Tab), 20 MEQ PO BID Potassium Citrate (Alkalinizer (Potassium Citrate ER), 12 TAB PO TID Insulin Human Lispro (Humalog), 18 UNITS SC AM/PM - Take the following medications the morning of surgery with a sip of water OTHERWISE NOTHING TO EAT OR DRINK AFTER MIDNIGHT: Finasteride (Proscar), 5 MG PO QAM Metoprolol Succinate (Toprol Xl), 50 MG PO BID Isosorbide Mononitrate Ext Rel (Imdur Ext Rel), 1 TAB PO QAM Hydrocodone/Acetaminophen 5MG/325MG (Reno 5MG/325MG), 2 TABLETS PO HS PRN ( may take if needed up to 4 hours prior to surgery) Lorazepam (Ativan), 1 MG SL (if needed) - Take the following medications as scheduled the night before surgery: Aspirin Enteric Coated (Ecotrin Or Generic), 81 MG PO QPM Tamsulosin Hcl (Flomax), 0.4 MG PO HS Metoprolol Succinate (Toprol Xl), 50 MG PO BID Magnesium Oxide (Magnesium Oxide), 400 MG PO BID Potassium Chloride (K-Tab), 20 MEQ PO BID Potassium Citrate (Alkalinizer (Potassium Citrate ER), 12 TAB PO TID Hydrocodone/Acetaminophen 5MG/325MG (Reno 5MG/325MG), 2 TABLETS PO HS PRN for N Lorazepam (Ativan), 1 MG SL (if needed) Insulin Glargine (Lantus), 85 UNITS SC QPM Insulin Human Lispro (Humalog), 18 UNITS SC AM/PM If you have any questions please call us at [phone] or [phone] or [phone]
[2016-12-29 15:31] LABS: BASO % 0.3 %; BASO ABS # 0.03 K/uL (0-0.2); COMPLETE YES; EOS % 3.3 %; HEMATOCRIT 44.5 % (42-52); IG% 0.6 %; LYMPH ABS # 2.29 K/uL (1.2-3.4); MEAN CELL VOLUME 93.1 fL (80-100); MEAN CORPUSCULAR HEMOGLOBIN 32.6 pg (25-34); MEAN CORPUSCULAR HGB CONC 35.1 g/dl (32-36); MEAN PLATELET VOLUME 10.4 fL (7.4-10.4); NEUT % 64.8 %; PLATELET COUNT 205 K/uL (130-400); RED BLOOD COUNT 4.78 M/uL (4.7-6.1); WHITE BLOOD COUNT 8.82 K/uL (4.8-10.8)
[2016-12-29 15:35] LABS: URINE APPEARANCE CLEAR (CLEAR); URINE BILIRUBIN NEG (NEG); URINE COLOR YELLOW; URINE NITRITE NEG (NEG); URINE SPECIFIC GRAVITY 1.017 (1.000-1.030); UROBILINOGEN NEG (NEG); ZZUR CULT IF INDIC CLEAN CATCH NO
[2016-12-29 15:40] LABS: INR 0.9 (0.9-1.1); PARTIAL THROMBOPLASTIN RATIO 1.1; PROTHROMBIN TIME (PATIENT) 9.8 SECONDS (9.0-12.0)
[2016-12-29 15:42] LABS: MANUAL MICROSCOPIC REQUIRED? NO; REVIEW REQ? NO
[2016-12-29 16:15] LABS: CALCIUM 8.9 mg/dl (8.5-10.1); CREATININE 1.36 mg/dl (0.60-1.40); POTASSIUM 3.4 mmol/L (3.5-5.1)
[2016-12-30 06:14] LABS: ESTIMATED AVERAGE GLUCOSE 137 mg/dl; HA1C FLAG Normal (Normal)
--- NOTE | 2017-01-12 18:47 | HISTORY & PHYSICAL EXAMINATION ---
DATE OF ADMISSION: 01/13/2017 CHIEF COMPLAINT: Chronic left shoulder pain. HISTORY OF PRESENT ILLNESS: This is a 66-year-old male patient of Dr. Rodriguez'cesar complaining of chronic left shoulder pain, longstanding, now progressively getting worse. The patient has failed conservative treatment. He has been diagnosed with end-stage osteoarthritis per clinical and radiographic exams. The patient wishes to proceed with a left total shoulder arthroplasty. PAST MEDICAL HISTORY: Coronary artery disease status post an OR in 2008, hypertension, hypercholesterolemia, sleep apnea with the use of CPAP, diabetes mellitus with insulin, rheumatoid arthritis, osteoarthritis, obesity, BPH. SOCIAL HISTORY: Nonsmoker, nondrinker. FAMILY HISTORY: Noncontributory. REVIEW OF SYSTEMS: The patient complains of chronic left shoulder pain and dysfunction. Otherwise, denies any shortness of breath, chest pain, nausea, vomiting or any other joint complaints. MEDICATIONS: Include chlorthalidone 50 mg 2 tablets in the morning, Proscar 5 mg daily, folic acid 1 mg daily, Lasix 40 mg daily, Levemir FlexPen injection 30 units b.i.d., lisinopril 40 mg daily, Ativan 1 mg daily, metformin 1000 mg b.i.d., methotrexate 2.5 mg 7 tablets once a week, NovoLog pen injection 20 units twice daily plus sliding scale, potassium citrate 1080 mg 6 tablets 2 in the morning, 2 at lunch, 2 at night, potassium chloride, Requip 1 mg at bedtime, Flomax 0.4 mg at bedtime, tramadol as needed, baby aspirin daily, magnesium 400 mg b.i.d., melatonin 5 mg at bedtime, vitamin B12 q.a.m. SURGICAL HISTORY: Appendectomy, wrist surgery, carpal tunnel, hernia, colonoscopy, knee replacement, heart catheterization, cataract surgery, Adacel injection, vitrectomy surgery right eye, cystotomy x12. ALLERGIES: INCLUDE CIPRO, DICLOFENAC, AND GABAPENTIN. PHYSICAL EXAMINATION: GENERAL: Well-developed, well-nourished 66-year-old male in no acute distress. He is alert and oriented x3 and pleasant. HEENT: Normocephalic, atraumatic. Extraocular motions are intact. Pupils are equal and reactive to light. HEART: Regular rate and rhythm, no murmurs appreciated. LUNGS: Clear. ABDOMEN: Soft, nontender, bowel sounds present. EXTREMITIES: Left shoulder reveals crepitation and pain with passive range of motion to about 120 degrees. He has 4/5 strength globally with pain. NEUROLOGIC: Neurovascularly he is intact in his left upper extremity. DIAGNOSES: Left shoulder end-stage osteoarthritis, coronary artery disease status post an myocardial infarction in 2008, hypertension, hypercholesterolemia, sleep apnea with the use of CPAP, diabetes mellitus with insulin, osteoarthritis, rheumatoid arthritis, obesity, bladder prostatic hypertrophy. PLAN: The patient was advised of his diagnoses. Indications, risks, benefits, and postop course have all been reviewed. The patient wishes to proceed with a left total shoulder arthroplasty. Necessary consent forms, preoperative testing and clearances will be obtained.
[2017-01-13] VITALS (10 sets, daily range): BP systolic 114–135; BP diastolic 69–78; PULSE 69–114; TEMP 36.4–37; O2SAT 92–95; Ht 185.4 cm; Wt 159.3 kg
[~2017-01-13] VITALS: Ht 185.4 cm; Wt 159.3 kg
[~2017-01-13 06:47] MED LIST changes: +ACETAMINOPHEN 500 MG TAB PO SCH; +BUPIVACAINE 0.25% 30 ML VIAL ONE; +CEFAZOLIN 3000MG IV PUSH 15 ML IV SCH; +CLONIDINE HCL 100 MCG/ML SYRINGE ONE; +CeleBREX 200 MG CAP PO SCH; +DEXAMETHASONE 4 MG TAB PO SCH; +EpINEphrine INJ 1MG/ML AMP 1 MG/ML AMP ONE; +FAMOTIDINE 20 MG TAB PO SCH; +LACTATED RINGER'S 1000ML 1,000 ML IV SCH; +LACTATED RINGER'S 1000ML IV SCH; +METOCLOPRAMIDE HCL 10 MG TAB PO SCH; +ROPIVACAINE 0.5% 5 MG/ML 30 ML VIAL ONE
--- NOTE | 2017-01-13 07:42 | History & Physical Bridge Note ---
H&P Re-Evaluation Bridge Note: I have examined the patient, reviewed the History & Physical and in the interval since the performance of the History & Physical I have noted the following changes of clinical significance: No changes noted
[2017-01-13] MEDS ORDERED: ATROPINE SULFATE 0.1 MG/ML 5ML SYR IV PRN (08:00)
[2017-01-13] MEDS ORDERED: FENTANYL CITRATE INJ 50 MCG/1 ML 2 ML VIAL IV PRN (08:00)
[2017-01-13] MEDS ORDERED: EpHEDrine SULFATE INJ 50 MG/ML AMP IV PRN (08:00)
[2017-01-13] MEDS ORDERED: FLUMAZENIL 0.1 MG/1 ML 10 ML VIAL IV PRN (08:00)
[2017-01-13] MEDS ORDERED: HYDROmorphone INJ 2 MG/ML SYR/VIAL IV PRN (08:00)
[2017-01-13] MEDS ORDERED: MEPERIDINE HCL 25 MG/ML CARP IV PRN (08:00)
[2017-01-13] MEDS ORDERED: NALOXONE HCL 0.4 MG/1 ML VIAL/CARP IV PRN (08:00)
[2017-01-13] MEDS ORDERED: LABETALOL HCL IV 5 MG/ML 20ML IV PRN (08:00)
[2017-01-13] MEDS ORDERED: ONDANSETRON INJ 2 MG/ML 2 ML VIAL IV PRN ×2 (08:00→14:30)
[2017-01-13] MEDS ORDERED: PHENYLEPHRINE 100MCG/ML 5ML SYR IV PRN (08:00)
[2017-01-13] MEDS ORDERED: MIDAZOLAM HCL 1 MG/ML 2ML VIAL ONE ×2 (08:20)
[2017-01-13] MEDS ORDERED: LIDOCAINE HCL 2% 2 ML VIAL (20MG/ML) ONE (08:20)
[2017-01-13] MEDS ORDERED: FENTANYL CITRATE INJ 50 MCG/1 ML 2 ML VIAL ONE ×2 (08:20→11:52)
[2017-01-13] MEDS ORDERED: DEXAMETHASONE SOD INJ 4 MG/ML VIAL ONE (08:20)
[2017-01-13] MEDS ORDERED: ONDANSETRON INJ 2 MG/ML 2 ML VIAL ONE (08:20)
[2017-01-13] MEDS ORDERED: PROPOFOL IV EMULSION 10 MG/ML 20 ML VIAL IV ONE ×3 (08:20→11:48)
[2017-01-13] MEDS ORDERED: ROCURONIUM BROMIDE 10 MG/ML 5 ML VIAL IV ONE (08:21)
[2017-01-13] MEDS ORDERED: NEOSTIGMINE METHYLSULFATE 5 MG/5 ML SYR ONE (08:21)
[2017-01-13] MEDS ORDERED: GLYCOPYRROLATE INJ 0.2 MG/ML VIAL ONE ×2 (08:21→13:01)
[2017-01-13] MEDS ORDERED: BACITRACIN 50000 UNIT VIAL ONE (10:14)
[2017-01-13] MEDS ORDERED: EpINEphrine HCL INJ 1 MG/ML 5ML SYRINGE ONE (10:17)
[2017-01-13] MEDS ORDERED: ROPIVACAINE 0.5% 5 MG/ML 30 ML VIAL ONE (10:19)
[2017-01-13] MEDS ORDERED: EpHEDrine SULFATE INJ 50 MG/ML AMP ONE (11:14)
--- NOTE | 2017-01-13 14:19 | [facility] Post Operative Brief Note ---
Immediate Operative Summary Operative Date Jan 13, 2017. Pre-Operative Diagnosis Left shoulder end-stage osteoarthritis Post-Operative Diagnosis Same as preop,biceps tendinopathy bicipital groove spurs Procedure(s) Performed Left total shoulder arthroplasty with distal clavicle excision and biceps tenodesis Surgeon Dr. Rodriguez Entry Level Accounting Clerk Surgeon(s) Sivan Gonzalez PA-C Estimated Blood Loss 150 cc Findings as above,grade 4 djd GHJ Specimens B: left distal clavicle Drains 2 hemovac Anesthesia general and regional Complication(s) None Disposition Recovery Room / PACU
[2017-01-13] MEDS ORDERED: ALUMINUM/MAGNESIUM SUSP 30 ML UDC PO PRN (14:30)
[2017-01-13] MEDS ORDERED: MoRPHine SULFATE 2 MG/ML CARP IV PRN (14:30)
[2017-01-13] MEDS ORDERED: METOPROLOL TARTRATE 1 MG/ML VIAL ONE ×3 (14:49→15:35)
[2017-01-13] MEDS ORDERED: METOPROLOL TARTRATE 1 MG/ML VIAL IV STA (14:51)
--- NOTE | 2017-01-13 14:52 | DIAGNOSTIC IMAGING REPORT ---
L SHOULDER MIN 2 VIEWS ROUTINE CLINICAL HISTORY: Post shoulder surgery postoperative evaluation COMPARISON: 06/09/2016 DISCUSSION: Total left shoulder arthroplasty. Good contact between prosthetic and underlying bone. Interval partial distal clavicular resection. Expected postoperative soft tissue change. Surgical drains in position. Slight blunting left lateral gastric angle. Several old left-sided rib fractures. IMPRESSION: Anatomic alignment status post total left shoulder arthroplasty and distal clavicular resection. The above report was generated using voice recognition software. It may contain grammatical, syntax or spelling errors. Electronically signed by: Guilherme Linares M.D. 01/13/2017 2:51 PM Dictated Date/Time: 01/13/2017 2:50 PM
[2017-01-13] MEDS ORDERED: PHARMACY GLYCEMIC MGMT CONSULT PRN (16:05)
--- NOTE | 2017-01-13 16:07 | Anesthesiology Progress Note ---
Anesthesia Post Op Note Date & Time Jan 13, 2017 at 16:04 Vital Signs Pain Intensity: 0 Vital Signs Past 12 Hours Date Time Temp Pulse Resp B/P (MAP) Pulse Ox O2 Delivery O2 Flow Rate FiO2 01/13/17 15:55 109 24 108/62 94 Nasal Cannula 4 01/13/17 15:45 37.3 108 24 100/72 93 Nasal Cannula 4 01/13/17 15:38 106 101/75 01/13/17 15:35 109 21 109/68 94 Nasal Cannula 4 01/13/17 15:25 107 23 98/67 94 Nasal Cannula 4 01/13/17 15:15 110 24 112/63 93 Nasal Cannula 4 01/13/17 15:14 109 112/63 01/13/17 15:05 108 23 119/67 92 Nasal Cannula 4 01/13/17 14:55 108 24 118/68 91 Nasal Cannula 4 01/13/17 14:52 112 118/68 01/13/17 14:45 116 27 107/68 91 Nasal Cannula 4 01/13/17 14:35 86 24 139/104 92 Oxymask 10 01/13/17 14:25 82 21 114/79 91 Oxymask 10 01/13/17 14:18 37.6 104 16 123/68 94 Oxymask 10 01/13/17 08:08 36.6 69 24 132/74 94 Room Air Notes Mental Status: alert / awake / arousable, participated in evaluation Pt Amnestic to Procedure: Yes Nausea / Vomiting: adequately controlled Pain: adequately controlled Airway Patency, RR, SpO2: stable & adequate BP & HR: stable & adequate Hydration State: stable & adequate Anesthetic Complications: no major complications apparent Patient having mildly low O2 sats that appear to be secondary to block. Initially in PACU the patient was tachycardic with oxygen saturations in the low 90s and was diaphoretic. By improving oxygenation and optimizing fluid status, his symptoms improved. He was still slightly tachycardic despite several doses of IV metoprolol and oxygen saturations were low to mid 90s on NC while seated at bedside. Block working very well in pacu. Given his tachycardia and medical comorbidities, it seems reasonable to watch the patient on telemetry overnight. Medicine will evaluate the patient on the floor and Dr Jenkins has spoken directly with the consulting hospitalist.
[2017-01-13] MEDS ORDERED: METOPROLOL TARTRATE 1 MG/ML VIAL IV PRN (16:45)
--- NOTE | 2017-01-13 17:13 | Medical Consult ---
Consultation Date of Consultation: Jan 13, 2017. Attending Physician: José Rodriguez M.D. Reason for Consultation: Tachycardia post-op History of Present Illness 66 y/o M who was admitted s/p R total shoulder with Dr. Rodriguez. Called by anesthesia from PACU as pt was having persistent tachycardia in recovery in the 120s. He was given metoprolol 5mg IV and came down to 108. He was given metoprolol 5mg IV two more times for a total of 15mg and this has persisted in the low 100s. He has been in the low 90s on 2L. He is not on O2 at baseline. Pt was apparently under anesthesia for 4 hours total. Pt is upset about the ability of the hospital bed to not allow him to fully sit up but otherwise feels fine. Denies palpitations or SOB or chest pain. Pt denies fever,abd pain, n/v/c/d, LE pain or swelling. He has not eaten yet. He does note a headache. He does note that his AM BS was 76 after taking his lantus last night and not eating further. Past Medical/Surgical History [place] 2010 s/p stent DM OLEG, compliant with CPAP CKD Hyperlipidemia RA OA BPH Family History Family history was reviewed; no changes noted. Social History Smoking Status: Former Smoker Alcohol Use: none Drug Use: none Marital Status: Housing Status: lives with family Occupation Status: employed Allergies Coded Allergies: Gabapentin (Verified Allergy, Unknown, DIZZINESS, 12/29/16) Ciprofloxacin (Verified Adverse Reaction, Intermediate, DIAPHORETIC, NAUSEA, 12/29/16) Diclofenac (Verified Adverse Reaction, Intermediate, GO FROM ICE COLD TO HOT FLASHES, 12/29/16) Current Inpatient Medications Current Inpatient Medications Medications (Trade) Dose Ordered Sig/Tara Route Start Time Stop Time Status Last Admin Dose Admin Lactated Ringer's 1,000 ml @ 60 mls/hr [id number] IV 01/13/17 06:00 01/13/17 22:39 Cefazolin Sodium 15 ml @ 3 mls/min PREOP IV 01/13/17 06:00 01/13/17 18:00 01/13/17 10:38 3 MLS/MIN Acetaminophen (Tylenol Tab) 1,000 mg PREOP PO 01/13/17 06:00 01/13/17 18:00 01/13/17 08:30 1,000 MG Celecoxib (CeleBREX CAP) 200 mg PREOP PO 01/13/17 06:00 01/13/17 18:00 01/13/17 08:30 200 MG Dexamethasone (Decadron Tab) 8 mg PREOP PO 01/13/17 06:00 01/13/17 18:00 01/13/17 08:29 8 MG Famotidine (Pepcid Tab) 20 mg PREOP PO 01/13/17 06:00 01/13/17 18:00 01/13/17 08:30 20 MG Metoclopramide HCl (Reglan Tab) 10 mg PREOP PO 01/13/17 06:00 01/13/17 18:00 01/13/17 08:30 10 MG Lactated Ringer's 1,000 ml @ 15 mls/hr Q24H IV 01/13/17 06:00 01/14/17 05:59 01/13/17 08:03 15 MLS/HR Finasteride (Proscar Tab) 5 mg QAM PO 01/14/17 09:00 02/13/17 08:59 Furosemide (Lasix Tab) 40 mg QAM PO 01/14/17 09:00 02/13/17 08:59 Isosorbide Mononitrate (Imdur Ext Rel Tab) 30 mg QAM PO 01/14/17 09:00 02/13/17 08:59 Lisinopril (Zestril Tab) 40 mg QAM PO 01/14/17 09:00 02/13/17 08:59 Metoprolol Succinate (Toprol Xl Tab) 50 mg BID PO 01/13/17 21:00 02/12/17 20:59 Tamsulosin HCl (Flomax Cap) 0.4 mg HS PO 01/13/17 21:00 02/12/17 20:59 Non-Formulary Medication (Chlorthalidone ) 100 mg QAM PO 01/14/17 09:00 02/13/17 08:59 UNV Magnesium Oxide (Mag-Ox Tab) 400 mg BID PO 01/13/17 21:00 02/12/17 20:59 Apixaban (Eliquis Tab) 5 mg BID PO 01/14/17 09:00 02/13/17 08:59 UNV Ondansetron HCl (Zofran Inj) 4 mg Q6H PRN IV 01/13/17 14:30 02/12/17 14:29 Al Hydroxide/Mg Hydroxide (Maalox Susp) 30 ml Q4H PRN PO 01/13/17 14:30 02/12/17 14:29 Pantoprazole Sodium (Protonix Tab) 40 mg QAM PO 01/14/17 09:00 02/13/17 08:59 UNV Potassium Chloride 10 meq/ Sodium Chloride 1,005 ml @ 100 mls/hr Q10H3M IV 01/13/17 14:16 02/12/17 14:15 UNV Oxycodone HCl (Roxicodone Immediate Rel Tab) `1-2 TABS FOR PAIN `1 TAB... Q4H PRN PO 01/13/17 14:30 01/27/17 14:29 Acetaminophen (Tylenol Tab) 1,000 mg Q8 PO 01/13/17 22:00 02/12/17 21:59 UNV Senna (Senokot Tab) 17.2 mg HS PO 01/13/17 21:00 02/12/17 20:59 UNV Multivitamins (Multivitamin Tab) 1 tab DAILY PO 01/14/17 09:00 02/13/17 08:59 UNV Cefazolin Sodium 2000 mg/Dextrose 60 ml @ 100 mls/hr Q8H IV 01/13/17 14:30 01/13/17 23:05 UNV Morphine Sulfate (MoRPHine SULFATE INJ) 2 mg Q4HWA PRN IV 01/13/17 14:30 01/27/17 14:29 Morphine Sulfate (MoRPHine SULFATE INJ) 4 mg Q4HWA PRN IV 01/13/17 14:30 01/27/17 14:29 Miscellaneous Information (Consult Glycemic Management Pharmacy) 1 ea UD PRN N/A 01/13/17 16:05 02/12/17 16:04 Metoprolol Tartrate (Lopressor Iv) 5 mg NOW STAT IV 01/13/17 14:51 01/13/17 14:52 UNV Review of Systems Pertinent positives and negatives reviewed in HPI--all others negative Physical Exam Date Time Temp Pulse Resp B/P (MAP) Pulse Ox O2 Delivery O2 Flow Rate FiO2 01/13/17 16:15 36.6 109 20 118/69 (85) 95 Nasal Cannula 4.0 01/13/17 15:55 109 24 108/62 94 Nasal Cannula 4 01/13/17 15:45 37.3 108 24 100/72 93 Nasal Cannula 4 01/13/17 15:38 106 101/75 01/13/17 15:35 109 21 109/68 94 Nasal Cannula 4 01/13/17 15:25 107 23 98/67 94 Nasal Cannula 4 01/13/17 15:15 110 24 112/63 93 Nasal Cannula 4 01/13/17 15:14 109 112/63 01/13/17 15:05 108 23 119/67 92 Nasal Cannula 4 01/13/17 14:55 108 24 118/68 91 Nasal Cannula 4 01/13/17 14:52 112 118/68 01/13/17 14:45 116 27 107/68 91 Nasal Cannula 4 01/13/17 14:35 86 24 139/104 92 Oxymask 10 01/13/17 14:25 82 21 114/79 91 Oxymask 10 01/13/17 14:18 37.6 104 16 123/68 94 Oxymask 10 01/13/17 08:08 36.6 69 24 132/74 94 Room Air General Appearance: no apparent distress, + obese Head: normocephalic, atraumatic Eyes: normal inspection, EOMI, sclerae normal Respiratory/Chest: normal breath sounds, no respiratory distress Cardiovascular: normal peripheral pulses, + tachycardia Abdomen/GI: non tender, soft Extremities/Musculoskelatal: no calf tenderness, + pedal edema (mild pedal edema, nonpitting) Neurologic/Psych: alert, oriented x 3 Skin: normal color, warm/dry Laboratory Results Last 24 Hours Test 01/13/17 08:17 01/13/17 12:02 01/13/17 14:22 Bedside Glucose 165 mg/dl 185 mg/dl 204 mg/dl Assessment & Plan 66 y/o M who was admitted on 01/13 s/p R total shoulder with Dr. Rodriguez. Pt was persistent tachycardia in the PACU and with low O2 sats in the 90s on 2L after a prolonged course of anesthesia (4 hours). Tachycardia/low O2 sats: likely related to prolonged anesthesia, pt is asx with this Given 15mg IV metoprolol total in PACU, 5mg PRN if HR >120 Monitor on tele BP is stable R shoulder: as per ortho DVT proph and diet as per ortho HypoK: replace and monitor DM: BS slightly elevated, monitor on lantus + SSI A1c 6.4 Home regimen is lantus 85 units with dinner, humalog 18 units + sliding scale with meals Should use SSI without baseline 18 units or lantus until pt has eaten consistently OLEG: compliant with CPAP and did bring home unit in to use CAD: s/p [place] 2009 with stent
[2017-01-13] MEDS: POTASSIUM CHLORIDE INJ 10 MEQ in SODIUM CHLORIDE 0.9% 1000ML 1,000 ML IV SCH (17:43)
[2017-01-13] MEDS: INSULIN ASPART 100 UNITS/ML 3 ML PEN SC SCH ×2 (17:45→22:21)
--- NOTE | 2017-01-13 17:53 | OPERATIVE REPORT ---
DATE OF OPERATION: 01/13/2017 INDICATION FOR PROCEDURE: The patient is a 66-year-old male with chronic osteoarthritis in his left shoulder. His radiographs demonstrate [id number] in the glenohumeral joint. He has concentric type wear pattern. He also has hypertrophic AC joint arthritis, which is also symptomatic. He has also morbid obesity, BMI of 45.9. PREOPERATIVE DIAGNOSES: End-stage osteoarthritis of glenohumeral joint and acromioclavicular joint, left shoulder with rotator cuff tendinopathy without full thickness tear with morbid obesity, body mass index of 45.9. POSTOPERATIVE DIAGNOSES: Left shoulder end-stage glenohumeral joint and acromioclavicular joint osteoarthritis; biceps tenosynovitis, chronic with bicipital groove bone spurs; partial tear rotator cuff; and morbid obesity, body mass index of 45.9. PROCEDURES: Left total shoulder arthroplasty, distal clavicle excision, biceps tenodesis, increased difficulty due to morbid obesity, BMI of 45.9. SURGEON: José Rodriguez MD TURN OUT: Damien Gonzalez PA-C ANESTHESIA: Regional block and general. OPERATIVE PROCEDURE: The patient was taken to the operating room, anesthetized with regional block and general anesthetic. He had a Lovell catheter placed. He had TEDs and SCDs placed. He was placed in a 40-degree beach chair position on the operating room table and translated to left side of the bed with a towel roll under the medial border of his left scapula. He was translated to left side of the bed, so we could extend the shoulder off the bed as necessary to manipulate the arm. His head was placed on a foam headrest. He had protective eyewear placed. His left shoulder was then examined. He had about 150 degrees of forward elevation and abduction to 90, external rotation to about 45 degrees. He had an obese large arm. The left shoulder was then sterilely prepped and draped with ChloraPrep. We started with an anterior deltopectoral incision longitudinally made in the deltopectoral interval longer than typical due to the size of the patient. Skin was incised sharply. Fat was divided down to the fascia. Multiple bleeders were cauterized. The patient had a large cephalic vein, which was dissected out and retracted laterally with the deltoid and protected throughout the procedure. The crossing veins were tied off with silk ties and divided. The deltoid was retracted laterally. The pectoralis was retracted medially. The biceps tendon demonstrated a large area of tenosynovitis around the biceps tendon going up in the bicipital groove and down under the pectoralis. This tenosynovium was opened up and excised. The upper centimeter of the pectoralis was released for inferior exposure. The biceps tendon was tenodesed to the pectoralis tendon with [id number] #2 Fiberwire sutures and the proximal biceps was resected. The subscapularis bursa and rotator cuff bursa was resected. The bursal surface of the rotator cuff was completely intact of subscap through infraspinatus. The circumflex vessels were identified, tied off with silk ties and divided laterally. The muscle fibers of the subscapularis was split at the level of the circumflex vessels, reflected down to the capsule and then dissected off the inferior capsule with a soft tissue Kitner elevator and then a blunt Hohmann retractor was used to protect the axillary nerve inferiorly. Then, the rotator interval was opened up and a longitudinal incision was made through the rotator interval laterally toward the lesser tuberosity. Then a transtendinous incision was made through the subscapularis tendon leaving a good cuff of tissue for repair on the lesser tuberosity. A #1 Vicryl suture was placed into the subscapularis for traction. The capsule was then gradually released off neck of the humerus staying on bone revealing a large anterior osteophyte. The osteophyte was removed with an artist chisel and a rongeur and then we made sure the capsule was released off the neck for exposure purposes. The humeral head was completely down to exposed bone, which was eburnated bone. The humeral head was then retracted posterior to the glenoid with a Fukuda retractor. Then, under direct visualization, I released the capsule down to the 5 o'clock position and then released off the anterior glenoid and released the rotator interval capsule down to the glenoid as well. I did do a partial capsulectomy and in the rotator interval area, we did identify some large loose bodies that were removed. The glenoid labrum was degenerative. The glenoid itself majority was exposed bone with concentric wear, and there was still some superior articular cartilage. The glenoid labrum was resected circumferentially along with the biceps tendon, which was released off the superior attachment. There was a large posterior osteophyte on the glenoid, which was removed with an osteotome. Then, I did a capsular release anteriorly inferiorly, posterior inferiorly using electrocautery on bone with the axillary nerve protected inferiorly with the Hohmann retractor. We also used a Gonzalez elevator to assist in the release. The lateral release exposure was felt to be satisfactory. Then I went ahead and exposed the humeral head. The humeral head was exposed with extension and external rotation. Anatomic head cut was made using an oscillating saw, removing the head at the anatomic version. The fragment was removed. It was sized between a 52 and a 54. Based on preoperative templating, we felt the 52 would be satisfactory. I used the Tornier total shoulder arthroplasty system using Ascend Flex humeral component and a standard stem length and the Affiniti glenoid components. At this time, the humerus was prepared for the humeral stem. We used a centralizing awl followed by sizing broaches, which sized to a 7. We then broached up to a 6, but there was such a tight fit with a 6 that we did not want to go to a 7. With the trial [address] and placed a cup protector on and then retracted the humeral head posterior to the glenoid. This was difficult due to his large size, large muscles, and obese arm to get appropriate glenoid exposure. We were able to get good exposure and then drilled our central drill hole. I then went ahead and used the reamer. We had to remove the retractors, so we could advance the reamer in until it was fully seated and then I power reamed the glenoid for the Affiniti glenoid. We used the 52 glenoid component to match the humeral head size. After he remained satisfactory, then we replaced all retractors and irrigated out the joint and then widened the central hole, placed in the guide for the peripheral peg holes, drilled those and then went ahead and irrigated out the glenoid copiously, packed the holes with epinephrine, soaked tampons and placed a clean sponge into the joint over the glenoid and then went ahead and vacuum mixed the Palacos G cement. The Affiniti CortiLoc size 52 glenoid component was then impacted into position with the central post-press fit and the base of the central post and peripheral peg cemented. This was held until the cement cured. All excess cement was cleared. DICTATION ENDS ABRUPTLY. I attest to the content of the Intraoperative Record and any orders documented therein. Any exception s are noted below.
[2017-01-13] MEDS: CEFAZOLIN 2000MG IV PUSH 10 ML IV SCH (19:27)
[2017-01-13] MEDS ORDERED: INSULIN GLARGINE SOLOSTAR 100 UNITS/ML 3 ML PEN SC SCH (21:00)
[2017-01-13] MEDS: SENNA 8.6 MG TAB PO SCH (21:09)
[2017-01-13] MEDS: METOPROLOL SUCC 50MG EXT REL TAB PO SCH (21:10)
[2017-01-13] MEDS: MAGNESIUM OXIDE 400 MG TAB PO SCH (21:11)
[2017-01-13] MEDS: TAMSULOSIN HCL 0.4 MG CAP PO SCH (21:11)
[2017-01-13] MEDS ORDERED: NURSING VERBAL MED ORDER ONE (22:00)
[2017-01-13] MEDS: ACETAMINOPHEN 500 MG TAB PO SCH (22:23)
[2017-01-14] VITALS (8 sets, daily range): BP systolic 101–141; BP diastolic 59–76; PULSE 57–106; TEMP 36.5–37.1; O2SAT 90–98
[2017-01-14] MEDS: CEFAZOLIN 2000MG IV PUSH 10 ML IV SCH (01:38)
[2017-01-14] MEDS: OXYCODONE HCL IR 5 MG TAB (IMMEDIATE RELEASE) PO PRN ×4 (02:41→23:58)
[2017-01-14] MEDS: POTASSIUM CHLORIDE INJ 10 MEQ in SODIUM CHLORIDE 0.9% 1000ML 1,000 ML IV SCH ×2 (03:53→12:52)
[2017-01-14] MEDS: MoRPHine SULFATE 4 MG/ML 1 ML CARP\\VIAL IV PRN ×2 (04:18→13:44)
[2017-01-14] MEDS: ACETAMINOPHEN 500 MG TAB PO SCH ×3 (05:37→21:30)
--- NOTE | 2017-01-14 07:28 | OPERATIVE REPORT ---
DATE OF OPERATION: 01/13/2017 DESCRIPTION OF PROCEDURE: After all the excess cement was cleared, the joint was irrigated out and then the humerus was exposed with extension and external rotation. The cup protector was removed from the trial component. The trial head size 52 x 19 high offset was placed onto the trial stem. This was reduced to the glenoid component and we assessed stability and soft tissue tension of the subscapularis which was satisfactory. Then the trial was removed and the drill holes were made for the #5 FiberWire sutures into the hard bone in the bicipital groove medial to the lesser tuberosity and the 3 sutures were placed transosseous around the lesser tuberosity and cut subs cap tendon. The humeral canal was copiously irrigated with antibiotic solution with bacitracin and then the final component was assembled on the back table. The 52 x 19 eccentric high offset head was assembled to the standard length 6A stem This was then inserted in the canal until fully seated. The humerus was then reduced to the glenoid. After further irrigation, the subscapularis was repaired with a #5 FiberWire sutures using Simon-Zaid suture technique and then lateral row soft tissue repair of the subscapularis was performed with a [id number] #2 FiberWire and the rotator was closed in maximal external rotation to 50 degrees with interrupted #2 FiberWire sutures. The split in the pectoralis tendon was repaired with [id number] #2 FiberWire sutures reinforcing the biceps tenodesis with sutures through the biceps as well. After irrigation, a moist sponge was placed and then attention was taken to the distal clavicle excision. A transverse incision was made for about 3 cm over the distal clavicle. The skin was incised sharply. The fat was divided down to the fascia. The deltotrapezius fascia was split transversely over the AC joint and then a subperiosteal dissection anterior and posterior around the distal third of the clavicle was performed. This revealed hypertrophic AC joint with spurs around the distal clavicle with grade 3-4 changes in the clavicle noted. The 1 cm distal clavicle was resected with an oscillating saw. Some of the acromial facet bone spurs were resected with a rongeur and some of the bursa. The joint was copiously irrigated and then the deltotrapezius fascia was repaired with [id number] #2 FiberWire sutures. Then the prior incision in the deltopectoral region was irrigated copiously with antibiotic solution with bacitracin. Then 2 drains were placed and brought out laterally. One was placed deep to the deltoid and one was placed deep to the conjoined tendon. The deltopectoral interval were repaired with [id number] #1 Vicryl sutures and then the subcutaneous tissues were closed with interrupted 2-0 Vicryl in both incisions and the skin was closed with kate. Sterile dressings were applied. The estimated blood loss was about 150 mL. The patient tolerated the procedure well. LICO Wu was my land surveyor assistant in the procedure. He assisted in soft tissue retraction, arm positioning, instrument management, performed the subcutaneous and skin closure and will participate in some of the postoperative care of the patient. The difficulty of the procedure was significantly increased by the patient's obesity. There was increased difficulty throughout the procedure including positioning, soft tissue retraction and exposure due to morbid obesity with his BMI of 45.9. I attest to the content of the Intraoperative Record and any orders documented therein. Any exception s are noted below.
[2017-01-14] MEDS: PANTOprazole SOD 40 MG TAB PO SCH (07:52)
[2017-01-14] MEDS: MULTIVITAMIN TAB PO SCH (07:53)
[2017-01-14] MEDS: LISINOPRIL 40 MG TAB PO SCH (07:53)
[2017-01-14] MEDS: MAGNESIUM OXIDE 400 MG TAB PO SCH ×2 (07:53→20:01)
[2017-01-14] MEDS: APIXABAN 2.5 MG TAB PO SCH ×2 (07:53→20:02)
[2017-01-14] MEDS: FUROSEMIDE 40 MG TAB PO SCH (07:54)
[2017-01-14] MEDS: FINASTERIDE 5 MG TAB PO SCH (07:54)
[2017-01-14] MEDS: METOPROLOL SUCC 50MG EXT REL TAB PO SCH ×2 (07:55→20:01)
[2017-01-14] MEDS: ISOSORBIDE MONONITRATE 30 MG TABCR PO SCH (07:55)
[2017-01-14] MEDS: INSULIN ASPART 100 UNITS/ML 3 ML PEN SC SCH ×4 (08:06→21:34)
[2017-01-14 08:11] LABS: HEMATOCRIT 40.4 % (42-52); MEAN CELL VOLUME 92.7 fL (80-100); MEAN CORPUSCULAR HEMOGLOBIN 32.6 pg (25-34); MEAN CORPUSCULAR HGB CONC 35.1 g/dl (32-36); MEAN PLATELET VOLUME 10.3 fL (7.4-10.4); PLATELET COUNT 196 K/uL (130-400); RED BLOOD COUNT 4.36 M/uL (4.7-6.1); WHITE BLOOD COUNT 13.25 K/uL (4.8-10.8)
[2017-01-14 08:16] LABS: BUN/CREATININE RATIO 18.1 (10-20); CALCIUM 8.5 mg/dl (8.5-10.1); CREATININE 1.2 mg/dl (0.60-1.40); POTASSIUM 3.4 mmol/L (3.5-5.1)
[2017-01-14] MEDS ORDERED: CHLORTHALIDONE 25 MG TAB PO SCH (09:00)
[2017-01-14] MEDS ORDERED: POTASSIUM CHLORIDE 20 MEQ TABCR PO STA (09:01)
--- NOTE | 2017-01-14 09:38 | Anesthesiology Progress Note ---
Anesthesia Post Op Note Date & Time Jan 14, 2017 at 09:38 Vital Signs Pain Intensity: 6.0 Vital Signs Past 12 Hours Date Time Temp Pulse Resp B/P (MAP) Pulse Ox O2 Delivery O2 Flow Rate FiO2 01/14/17 08:21 37.0 75 18 113/69 (84) 96 01/14/17 04:38 37.0 100 108/65 (79) 91 Room Air 01/14/17 04:00 Nasal Cannula 4.0 01/14/17 01:04 36.5 105 20 129/61 (83) 90 Nasal Cannula 4.0 01/14/17 00:00 Nasal Cannula 4.0 01/13/17 23:05 93 Nasal Cannula 4.0 Notes Mental Status: alert / awake / arousable, participated in evaluation Pt Amnestic to Procedure: Yes Nausea / Vomiting: adequately controlled Pain: adequately controlled Airway Patency, RR, SpO2: stable & adequate BP & HR: stable & adequate Hydration State: stable & adequate Anesthetic Complications: no major complications apparent
--- NOTE | 2017-01-14 09:59 | Orthopedic Progress Note ---
Orthopedic Progress Note Date of Service Jan 14, 2017. Subjective Post OP Day: 1 Additional Notes: Pt sitting up at bedside. C/O pain this AM that has kept him up most of the night. Unable to sleep. Pt points to the area of his TSA incision where most of his pain is. No other complaints. Block wore off last night. Moved to [facility] for tachycardia. Objective N/V intact, capillary refill less than 2 sec., dressing C/D/I, A&O x3, hemovac drainage (60ml latest shift) Moving his fingers well. Sensation intact. Swelling noted into hand. Date Time Temp Pulse Resp B/P (MAP) Pulse Ox O2 Delivery O2 Flow Rate FiO2 01/14/17 08:21 37.0 75 18 113/69 (84) 96 01/14/17 04:38 37.0 100 108/65 (79) 91 Room Air 01/14/17 04:00 Nasal Cannula 4.0 01/14/17 01:04 36.5 105 20 129/61 (83) 90 Nasal Cannula 4.0 01/14/17 00:00 Nasal Cannula 4.0 01/13/17 23:05 93 Nasal Cannula 4.0 01/13/17 20:29 37.0 114 20 114/70 (85) 93 Nasal Cannula 4.0 01/13/17 19:50 36.5 106 22 123/71 (88) 95 Nasal Cannula 4.0 01/13/17 18:15 36.5 105 22 135/78 (97) 95 Nasal Cannula 4.0 01/13/17 17:15 36.4 110 22 116/73 (87) 94 Nasal Cannula 4.0 01/13/17 17:07 116 118/69 01/13/17 16:18 36.4 110 24 115/72 (86) 92 Nasal Cannula 4.0 01/13/17 16:15 36.6 109 20 118/69 (85) 95 Nasal Cannula 4.0 01/13/17 16:10 94 Nasal Cannula 4.0 01/13/17 16:10 94 Nasal Cannula 4.0 01/13/17 15:55 109 24 108/62 94 Nasal Cannula 4 01/13/17 15:45 37.3 108 24 100/72 93 Nasal Cannula 4 01/13/17 15:38 106 101/75 01/13/17 15:35 109 21 109/68 94 Nasal Cannula 4 01/13/17 15:25 107 23 98/67 94 Nasal Cannula 4 01/13/17 15:15 110 24 112/63 93 Nasal Cannula 4 01/13/17 15:14 109 112/63 01/13/17 15:05 108 23 119/67 92 Nasal Cannula 4 01/13/17 14:55 108 24 118/68 91 Nasal Cannula 4 01/13/17 14:52 112 118/68 01/13/17 14:45 116 27 107/68 91 Nasal Cannula 4 01/13/17 14:35 86 24 139/104 92 Oxymask 10 01/13/17 14:25 82 21 114/79 91 Oxymask 10 01/13/17 14:18 37.6 104 16 123/68 94 Oxymask 10 Laboratory Results 24 Hours: Test 01/14/17 07:18 Hematocrit 40.4 % Hemoglobin 14.2 g/dL Assessment & Plan Assessment: POD 1 s/p Left TSA/ DCE Plan: Medical management - transfer back to [facility] when ok with Med Service PT/OT Pain management - will add Oxycontin to pain regimen. DVT proph - Apixaban; STU's; SCD's Inhouse Planning Pain Management: Oxycontin, Morphine, PO Tylenol, Oxy IR DVT Prophylaxis: TEDs, SCDs, other (Apixaban)
--- NOTE | 2017-01-14 10:04 | Discharge Instructions ---
Discharge Instructions Date of Service Jan 14, 2017. Admission Reason for Admission: Left Shoulder Degenerative Joint Disease Discharge Discharge Diagnosis / Problem: Left Shoulder Djd Discharge Goals Goal(s): Decrease discomfort, Improve function, Increase independence Activity Recommendations Activity Limitations: per Instructions/Follow-up section . Instructions / Follow-Up Instructions / Follow-Up ACTIVITY RECOMMENDATIONS: SELF CARE INSTRUCTIONS AFTER TOTAL SHOULDER ARTHROPLASTY A. You may do daily exercises as taught in physical therapy while in hospital. No lifting with the operative arm. Please schedule your outpatient physical therapy appointment to begin within 2-3 days after leaving the hospital. Specific restrictions will be written on your physical therapy prescription that is provided to you. B. You are to wear your sling/immobilizer at all times EXCEPT when performing your daily exercises, participating in physical therapy and for hygiene purposes. C. You may perform dry, daily dressing changes. Please keep your incision covered. You may shower 48 hours after surgery. Do not apply soap or any ointment/ lotions directly over incision. Do not soak incision in bath tub/swimming pool. D. You may use ice as needed to operative shoulder. SPECIAL CARE INSTRUCTIONS: MEDICATION INSTRUCTIONS: *It is recommended you take Aspirin 325mg daily for four weeks post-op. VERY IMPORTANT TO READ AND REVIEW A. There are a few signs you need to watch for after you are home. Call [facility] at [phone] if you experience any of the followin. Increased severe shoulder pain. Some pain is expected especially when you exercise. 2. Increased swelling in you shoulder or arm; pain or swelling in either upper extremity. 3. Any fluid drainage from the incision. 4. Shortness of breath or chest pain. B. Please call [facility] at [phone] if you have any questions or concerns about your operation or recovery. C. Call your physician if: 1. Temperature is greater than 101 degrees (F). 2. Pain is not relieved by prescribed pain medications. 3. Increase drainage or redness from incision. 4. Unanswered questions or concerns. FOLLOW UP VISIT: Please call [facility] at [phone] to schedule a follow up appointment with Dr. Rodriguez or his PA in 12-14 days from your surgery date. Current Hospital Diet Patient's current hospital diet: Diabetes Type 1 Diet Discharge Diet Recommended Diet: Diabetes Type 1 Diet Procedures Procedures Performed: Left total shoulder arthroplasty with distal clavicle excision and biceps tenodesis Pending Studies Studies pending at discharge: no Laboratory Results Hemoglobin A1c Test 12/29/16 15:08 Range/Units Estimated Average Glucose 137 mg/dl Hemoglobin A1c 6.4 H 4.5-5.6 % Medical Emergencies . Who to Call and When: Medical Emergencies: If at any time you feel your situation is an emergency, please call 911 immediately. . Non-Emergent Contact Non-Emergency issues call your: Surgeon Call Non-Emergent contact if: temperature is above 101.5, your pain is not controlled, your pain is worsening, wound has increased drainage, wound has increased redness . "Provider Documentation" section prepared by Damien Gonzalez. . VTE Core Measure Inpt VTE Proph given/why not?: Other Anticoagulation, T.E.D. Stockings, SCD's [place] Drug Monitoring Program Search Results: patient reviewed within database, no issues identified
[2017-01-14] MEDS: OXYCODONE HCL 10 MG TABCR (OXYCONTIN) PO SCH ×2 (10:25→20:01)
--- NOTE | 2017-01-14 10:54 | Hospitalist Progress Note ---
Hospitalist Progress Note Date of Service Jan 14, 2017. (Verenice Tamayo CRNP) Subjective Pt evaluation today including: conversation w/ patient, physical exam, chart review, lab review, review of inpatient medication list Voiding: no voiding problems Mr. Bucnker is in a lot of pain this morning at his surgical site rating it a 15/ 10. He has not had any chest pain, sob or palpitations. He has been in and out of A.fib in the past with two scheduled synchronized conversions that were cancelled because he converted on his own. He normally gets very short of breath when in an A.fib. On the monitor over the night and today he has been in and out of A.fib around 105 that lasts from a few seconds to about a minute and then breaks into a NSR in the 50s and 60s. He has not been symptomatic with these bursts at all. His blood pressures have remained stable. ROS Constitutional: no chills, aches, sweats or fever Respiratory: no sob,cough, sputum, or wheezing Cardiac: no chest pain, palpitations, edema, orthopnea or lightheadedness GI: no abdominal pain, nausea, vomiting, diarrhea or constipation : no dysuria or hesitancy Extremities: see HPI Skin: no rash All Other Systems: Reviewed and Negative (Verenice Tamayo CRNP) Medications Medications Administered Medications (Trade) Dose Ordered Sig/Tara Route Start Time Stop Time Status Last Admin Dose Admin Cefazolin Sodium 15 ml @ 3 mls/min PREOP IV 01/13/17 06:00 01/13/17 18:00 DC 01/13/17 10:38 3 MLS/MIN Acetaminophen (Tylenol Tab) 1,000 mg PREOP PO 01/13/17 06:00 01/13/17 18:00 DC 01/13/17 08:30 1,000 MG Celecoxib (CeleBREX CAP) 200 mg PREOP PO 01/13/17 06:00 01/13/17 18:00 DC 01/13/17 08:30 200 MG Dexamethasone (Decadron Tab) 8 mg PREOP PO 01/13/17 06:00 01/13/17 18:00 DC 01/13/17 08:29 8 MG Famotidine (Pepcid Tab) 20 mg PREOP PO 01/13/17 06:00 01/13/17 18:00 DC 01/13/17 08:30 20 MG Metoclopramide HCl (Reglan Tab) 10 mg PREOP PO 01/13/17 06:00 01/13/17 18:00 DC 01/13/17 08:30 10 MG Lactated Ringer's 1,000 ml @ 15 mls/hr Q24H IV 01/13/17 06:00 01/14/17 05:59 DC 01/13/17 08:03 15 MLS/HR Bacitracin (Bacitracin Inj) 50,000 units STK-MED ONCE .ROUTE 01/13/17 10:14 01/13/17 10:15 DC 01/13/17 13:41 50,000 UNITS Epinephrine HCl (Adrenalin 5ml Syr) 5 mg STK-MED ONCE .ROUTE 01/13/17 10:17 01/13/17 10:18 DC 01/13/17 12:15 5 MG Finasteride (Proscar Tab) 5 mg QAM PO 01/14/17 09:00 02/13/17 08:59 01/14/17 07:54 5 MG Furosemide (Lasix Tab) 40 mg QAM PO 01/14/17 09:00 02/13/17 08:59 01/14/17 07:54 40 MG Isosorbide Mononitrate (Imdur Ext Rel Tab) 30 mg QAM PO 01/14/17 09:00 02/13/17 08:59 01/14/17 07:55 30 MG Lisinopril (Zestril Tab) 40 mg QAM PO 01/14/17 09:00 02/13/17 08:59 01/14/17 07:53 40 MG Metoprolol Succinate (Toprol Xl Tab) 50 mg BID PO 01/13/17 21:00 02/12/17 20:59 01/14/17 07:55 50 MG Tamsulosin HCl (Flomax Cap) 0.4 mg HS PO 01/13/17 21:00 02/12/17 20:59 01/13/17 21:11 0.4 MG Chlorthalidone (Hygroton Tab) 100 mg QAM PO 01/14/17 09:00 02/13/17 08:59 01/14/17 07:54 100 MG Magnesium Oxide (Mag-Ox Tab) 400 mg BID PO 01/13/17 21:00 02/12/17 20:59 01/14/17 07:53 400 MG Apixaban (Eliquis Tab) 5 mg BID PO 01/14/17 09:00 02/13/17 08:59 01/14/17 07:53 5 MG Pantoprazole Sodium (Protonix Tab) 40 mg QAM PO 01/14/17 09:00 02/13/17 08:59 01/14/17 07:52 40 MG Potassium Chloride 10 meq/ Sodium Chloride 1,005 ml @ 100 mls/hr Q10H3M IV 01/13/17 17:00 02/12/17 14:15 01/14/17 03:53 100 MLS/HR Oxycodone HCl (Roxicodone Immediate Rel Tab) `1-2 TABS FOR PAIN `1 TAB... Q4H PRN PO 01/13/17 14:30 01/27/17 14:29 01/14/17 08:03 10 MG Acetaminophen (Tylenol Tab) 1,000 mg Q8H PO 01/13/17 22:00 02/12/17 21:59 01/14/17 05:37 1,000 MG Senna (Senokot Tab) 17.2 mg HS PO 01/13/17 21:00 02/12/17 20:59 01/13/17 21:09 17.2 MG Multivitamins (Multivitamin Tab) 1 tab DAILY PO 01/14/17 09:00 02/13/17 08:59 01/14/17 07:53 1 TAB Cefazolin Sodium 10 ml @ 2.5 mls/min Q8H IV 01/13/17 18:30 01/14/17 03:12 DC 01/14/17 01:38 2.5 MLS/MIN Morphine Sulfate (MoRPHine SULFATE INJ) 4 mg Q4HWA PRN IV 01/13/17 14:30 01/27/17 14:29 01/14/17 04:18 4 MG Metoprolol Tartrate (Lopressor Iv) 5 mg STK-MED ONCE .ROUTE 01/13/17 14:49 01/13/17 14:50 DC 01/13/17 14:52 5 MG Metoprolol Tartrate (Lopressor Iv) 5 mg NOW STAT IV 01/13/17 14:51 01/13/17 16:43 DC 01/13/17 17:07 5 MG Metoprolol Tartrate (Lopressor Iv) 5 mg STK-MED ONCE .ROUTE 01/13/17 15:12 01/13/17 15:13 DC 01/13/17 15:14 5 MG Metoprolol Tartrate (Lopressor Iv) 5 mg STK-MED ONCE .ROUTE 01/13/17 15:35 01/13/17 15:36 DC 01/13/17 15:38 5 MG Insulin Aspart (novoLOG ASPART) SLIDING SCALE G... ACHS SC 01/13/17 17:45 02/12/17 17:44 01/14/17 08:06 21 UNITS Insulin Glargine (Lantus Vial) 85 units QPM SC 01/14/17 21:00 02/13/17 20:59 01/13/17 23:13 85 UNITS (Verenice Tamayo, WILL) Objective Vital Signs Date Time Temp Pulse Resp B/P (MAP) Pulse Ox O2 Delivery O2 Flow Rate FiO2 01/14/17 10:06 57 01/14/17 08:21 37.0 75 18 113/69 (84) 96 01/14/17 04:38 37.0 100 108/65 (79) 91 Room Air 01/14/17 04:00 Nasal Cannula 4.0 01/14/17 01:04 36.5 105 20 129/61 (83) 90 Nasal Cannula 4.0 01/14/17 00:00 Nasal Cannula 4.0 01/13/17 23:05 93 Nasal Cannula 4.0 01/13/17 20:29 37.0 114 20 114/70 (85) 93 Nasal Cannula 4.0 01/13/17 19:50 36.5 106 22 123/71 (88) 95 Nasal Cannula 4.0 01/13/17 18:15 36.5 105 22 135/78 (97) 95 Nasal Cannula 4.0 01/13/17 17:15 36.4 110 22 116/73 (87) 94 Nasal Cannula 4.0 01/13/17 17:07 116 118/69 01/13/17 16:18 36.4 110 24 115/72 (86) 92 Nasal Cannula 4.0 01/13/17 16:15 36.6 109 20 118/69 (85) 95 Nasal Cannula 4.0 01/13/17 16:10 94 Nasal Cannula 4.0 01/13/17 16:10 94 Nasal Cannula 4.0 01/13/17 15:55 109 24 108/62 94 Nasal Cannula 4 01/13/17 15:45 37.3 108 24 100/72 93 Nasal Cannula 4 01/13/17 15:38 106 101/75 01/13/17 15:35 109 21 109/68 94 Nasal Cannula 4 01/13/17 15:25 107 23 98/67 94 Nasal Cannula 4 01/13/17 15:15 110 24 112/63 93 Nasal Cannula 4 01/13/17 15:14 109 112/63 01/13/17 15:05 108 23 119/67 92 Nasal Cannula 4 01/13/17 14:55 108 24 118/68 91 Nasal Cannula 4 01/13/17 14:52 112 118/68 01/13/17 14:45 116 27 107/68 91 Nasal Cannula 4 01/13/17 14:35 86 24 139/104 92 Oxymask 10 01/13/17 14:25 82 21 114/79 91 Oxymask 10 01/13/17 14:18 37.6 104 16 123/68 94 Oxymask 10 (Verenice Tamayo CRNP) Physical Exam Notes: General: no distress Eyes: normal inspection, PERLL Respiratory: chest non tender, clear to auscultation, normal breath sounds, no respiratory distress, no accessory muscle use Cardiac: regular rate and rhythm, no rub or gallop, no murmur, no edema, no jvd GI/: active bowel sounds, no abd pain or tenderness, soft, non distended Extremities: tender left shoulder, arm in sling, drain intact Neuro/Psych: alert and oriented x 3, normal mood and affect Skin: normal color, dry (Verenice Tamayo CRNP) Laboratory Results Last 24 Hours Test 01/13/17 12:02 01/13/17 14:22 01/13/17 16:40 01/13/17 20:25 Bedside Glucose 185 mg/dl 204 mg/dl 235 mg/dl 230 mg/dl Test 01/14/17 07:12 01/14/17 07:18 01/14/17 07:21 Bedside Glucose 222 mg/dl White Blood Count 13.25 K/uL Red Blood Count 4.36 M/uL Hemoglobin 14.2 g/dL Hematocrit 40.4 % Mean Corpuscular Volume 92.7 fL Mean Corpuscular Hemoglobin 32.6 pg Mean Corpuscular Hemoglobin Concent 35.1 g/dl RDW Standard Deviation 47.3 fL RDW Coefficient of Variation 14.1 % Platelet Count 196 K/uL Mean Platelet Volume 10.3 fL Sodium Level 133 mmol/L Potassium Level 3.4 mmol/L Chloride Level 98 mmol/L Carbon Dioxide Level 26 mmol/L Anion Gap 9.0 mmol/L Blood Urea Nitrogen 22 mg/dl Creatinine 1.20 mg/dl Est Creatinine Clear Calc Drug Dose 93.8 ml/min Estimated GFR () 72.1 Estimated GFR (Non- 62.2 BUN/Creatinine Ratio 18.1 Random Glucose 180 mg/dl Calcium Level 8.5 mg/dl (Verenice Tamayo .WILL) Assessment and Plan Mr. Buckner is a 66 year old man post op 01/13 left TSA. Pmhx Coronary artery disease status post an IN in 2008, hypertension, hypercholesterolemia, sleep apnea with the use of CPAP,diabetes mellitus with insulin, rheumatoid arthritis , osteoarthritis,obesity, BPH, CKD II and urine proteinuria. Post op - pain control per ortho - aware of increased pain - bowel regimen per ortho - monitor for acute blood loss - cbc am Paroxysmal Atrial Fibrillation/post op tachycardia - patient is asymptomatic at this time and heart rate is not as high as yesterday, just over 100 in bursts, would continue to monitor on telemetry and continue BID 50 mg metoprolol. His heart rate may normalize as he gets farther out from the stress of surgery and repleated potassium - Mag pending - continue Eliquis Hypokalemia - repleated CAD/HTN - continue chlorthalidone, isosorbide, lisinopril, metoprolol DM II - Blood sugars in the 200s yesterday - patient received 8 of dexamethasone post op which may be contributing. - Pharmacy glycemic management consult - Continue ss, home dose insulin glargine CKD II - avoid nephrotoxic agents when possible (Verenice Tamayo .WILL) Attending Attestation: Pt seen/examined, chart reviewed, care plan d/w WILL Tamayo. I agree w/ the castillo components of her documentation. Pt w/ c/o left shoulder pain. Denies cp or sob. Tele with short runs of a. fib vs PAT. VSS no fever gen - obese, NAD neck - no JVD heart - RRR lungs - CTA b/l abd - soft, NT, minimally distended ext - no edema, large dressing in place over left shoulder neuro - strength b/l upper exts 5/5 A/P: 1. hyponatremia - 2nd to HCTZ use 2. hypokalemia - 2nd to HCTZ use; replace K, bmp in am; mag noted to be normal 3. PAT vs PAF - 2nd to #2, pain, etc. Bursts are short-lived and w/o symptoms. Cont BB, eliquis. Kt Clark MD (Kt Clark MD)
[2017-01-14] MEDS ORDERED: POTASSIUM CHLORIDE 20 MEQ TABCR PO ONE (14:00)
--- NOTE | 2017-01-14 14:13 | Pharmacy Progress Note ---
Glycemic Control Intl Consult Date of Service Jan 14, 2017. Scope Glycemic Pharmacist consulted by Damien Gonzalez on 01/14/17 for glycemic control and to write orders per [facility] inpatient glycemic control protocol Objective Weight (Kilograms): 157.700 Accuchecks BSG (last 24hrs): Test 01/13/17 14:22 01/13/17 16:40 01/13/17 20:25 01/14/17 07:12 Bedside Glucose 204 mg/dl (70-99) 235 mg/dl (70-99) 230 mg/dl (70-99) 222 mg/dl (70-99) Test 01/14/17 07:21 01/14/17 11:49 Random Glucose 180 mg/dl (70-99) Bedside Glucose 216 mg/dl (70-99) Laboratory Data (last 24hrs) Test 01/14/17 07:18 01/14/17 07:21 White Blood Count 13.25 K/uL Anion Gap 9.0 mmol/L BUN/Creatinine Ratio 18.1 Blood Urea Nitrogen 22 mg/dl Creatinine 1.20 mg/dl Potassium Level 3.4 mmol/L Sodium Level 133 mmol/L HbA1c Test 12/29/16 15:08 Hemoglobin A1c 6.4 % (4.5-5.6) H Recent Pertinent Medications Outpatient Anti-diabetic Regimen: * Lantus 85 units SQ qPM The patient is currently receiving: * Basal insulin: Lantus 85 units every 24 hours in the evening * Correctional Insulin: Novolog Correction per scale ACHS Goal Range: Low 110 mg/dL - High 150 mg/dL Correction Factor: 15 mg/dL/unit * Prandial insulin: Per carb ratio of 1 unit per 5 grams CHO consumed Risk Factors for Insulin Resistance: * Steroids: dexamethasone 8 mg PO x 1 preop and then dexamethasone 8 mg IV intraoperatively * Recent Surgery: shoulder surgery POD 1 * Diet: type 2 diabetic diet Assessment & Plan ASSESSMENT: * ADA & AACE recommend a goal blood sugar range 140-180 mg/dl for the majority of critically ill & non-critically ill patients. However, more stringent targets may be selected in individual cases. Will utilize more stringent goal of 110-140 mg/dl based on patient age & comorbidities. Additionally, tighter glycemic control is warranted to facilitate wound/infection healing. This goal range was changed last night to 140-180 mg/dL for unknown reasons - this is not currently appropriate as blood sugars below 150 mg/dL are associated with lower risk of infection. * Ms Buckner is a 66 y/o M admitted for shoulder surgery. He is well controlled on his home regimen (at least 120 units/day). Yesterday evening, the patient was resumed on him home dose of Lantus and weight-based stress of 2 Novolog. The patient REFUSED his Novolog with dinner. Subsequent blood sugars that evening were inflated due to this. He received 89 units of insulin yesterday ( 85 units of Lantus) with blood sugars ranging 165 mg/dL to 235 mg/dL. * This morning, the patient's fasting blood sugar was 222 mg/dL. The goal range lowered and Novolog tightened to almost weight-based stress of 3. The patient's home dose of 120 units/day was also stressed by 2 and this also showed similar parameters. Lunch's blood sugar was 216 mg/dL (slightly above the fasting blood sugar) so the carbohydrate ratio was tightened (factor most affected by hyperglycemia from steroids). Added overnight-accuchecks to ensure adequate 24 hour glucose control. PLAN FOR INPATIENT GLYCEMIC CONTROL: * Holding outpatient oral diabetes medications- consider restarting tomorrow * Basal insulin with LANTUS 85 units SQ HS * Correctional Insulin with NOVOLOG per scale ACHS or Q6hrs while NPO * Goal Range: Low 120 mg/dL - High 150 mg/dL * Correction Factor: 10 mg/dL/unit * Nutritional / Prandial insulin per carb ratio of 1 unit per 3 grams CHO consumed Recommendations for Discharge * Patient appears well-controlled on home regimen. Regimen is very basal heavy - may be beneficial to work towards 50% basal vs 50% bolus. If patient does not have any hypoglycemia then reasonable to continue. Thank you.
[2017-01-14] MEDS ORDERED: BISACODYL 5 MG TABEC PO ONE (17:45)
[2017-01-14] MEDS: POLYETHYLENE (MIRALAX) 17 GM PACK PO SCH (20:01)
[2017-01-14] MEDS ORDERED: INSULIN GLARGINE SC SCH (21:00)
[2017-01-14] MEDS: TAMSULOSIN HCL 0.4 MG CAP PO SCH (21:28)
[2017-01-14] MEDS: SENNA 8.6 MG TAB PO SCH (21:29)
[2017-01-15] VITALS (7 sets, daily range): BP systolic 106–124; BP diastolic 59–70; PULSE 62–74; TEMP 36.8–37.6; O2SAT 93–95
[2017-01-15] MEDS: INSULIN ASPART 100 UNITS/ML 3 ML PEN SC SCH ×6 (04:16→20:55)
[2017-01-15] MEDS: ACETAMINOPHEN 500 MG TAB PO SCH ×3 (05:47→20:53)
[2017-01-15 06:29] LABS: HEMATOCRIT 39.1 % (42-52); MEAN CELL VOLUME 93.5 fL (80-100); MEAN CORPUSCULAR HEMOGLOBIN 32.1 pg (25-34); MEAN CORPUSCULAR HGB CONC 34.3 g/dl (32-36); MEAN PLATELET VOLUME 10.2 fL (7.4-10.4); PLATELET COUNT 196 K/uL (130-400); RED BLOOD COUNT 4.18 M/uL (4.7-6.1); WHITE BLOOD COUNT 14.46 K/uL (4.8-10.8)
[2017-01-15 07:04] LABS: BUN/CREATININE RATIO 19.3 (10-20); CALCIUM 8.6 mg/dl (8.5-10.1); CREATININE 1.11 mg/dl (0.60-1.40); POTASSIUM 3.3 mmol/L (3.5-5.1)
[2017-01-15] MEDS ORDERED: INSULIN GLARGINE SC ONE (08:00)
[2017-01-15] MEDS: MULTIVITAMIN TAB PO SCH (08:13)
[2017-01-15] MEDS: PANTOprazole SOD 40 MG TAB PO SCH (08:13)
[2017-01-15] MEDS: FINASTERIDE 5 MG TAB PO SCH (08:14)
[2017-01-15] MEDS: FUROSEMIDE 40 MG TAB PO SCH (08:14)
[2017-01-15] MEDS: ISOSORBIDE MONONITRATE 30 MG TABCR PO SCH (08:14)
[2017-01-15] MEDS: LISINOPRIL 40 MG TAB PO SCH (08:14)
[2017-01-15] MEDS: POLYETHYLENE (MIRALAX) 17 GM PACK PO SCH ×2 (08:15→20:50)
[2017-01-15] MEDS ORDERED: POTASSIUM CHLORIDE 20 MEQ TABCR PO ONE ×3 (08:21→14:45)
[2017-01-15] MEDS: OXYCODONE HCL IR 5 MG TAB (IMMEDIATE RELEASE) PO PRN (08:32)
--- NOTE | 2017-01-15 09:18 | Pharmacy Progress Note ---
Pharmacy Glycemic Short Note 2 Date of Service Jan 15, 2017. Test 01/14/17 11:49 01/14/17 16:16 01/14/17 20:47 01/14/17 23:58 Bedside Glucose 216 mg/dl (70-99) 175 mg/dl (70-99) 173 mg/dl (70-99) 165 mg/dl (70-99) Test 01/15/17 03:52 01/15/17 05:23 01/15/17 06:57 Bedside Glucose 182 mg/dl (70-99) 176 mg/dl (70-99) Random Glucose 179 mg/dl (70-99) OUTPATIENT ANTIDIABETIC REGIMEN: * Lantus 85 units SQ HS * Humalog 18 units BID + sliding scale * Metformin 1g PO BID ASSESSMENT: * Blood sugars just above goal range, and not correcting down to goal overnight with correctional insulin * Patient requires more basal and CF * Pt also needs tighter goal range, for A1c 6.4% and age PLAN FOR INPATIENT GLYCEMIC CONTROL: * Hold outpatient oral diabetes medications * Basal insulin * Lantus 20 units SQ x 1 now then increase dose to: * Lantus 90 units SQ HS for BSG 180mg/dl or less * Lantus 100 units SQ HS for BSG > 180mg/dl * Bolus insulin * NovoLog per scale ACHS or Q6hrs while NPO and overnight at 0200 * TIGHTEN: Goal Range: Low 110 mg/dL - High 140 mg/dL * TIGHTEN: Correction Factor: 9 mg/dL/unit * Nutritional / Prandial insulin per carb ratio of 1 unit per 3 grams CHO consumed
--- NOTE | 2017-01-15 09:56 | Orthopedic Progress Note ---
Orthopedic Progress Note Date of Service Jan 15, 2017. Subjective Post OP Day: 2 Reports: feeling well, Denies: chest pain, SOB, light headedness Additional Notes: Having some sinus issues this AM but other than that, he feels well. Feeling much better than yesterday. Pain is controlled presently. Hoping to go home today but discussed that it would be up to Med Service to decide this. His electrolytes continue to fluctuate (Low K , Na). Discussed that it would benefit him to possibly stay another day to help bring those values up. Pt understands. (Pt seen by Dr Rodriguez this AM. Dressing changed, drain removed) Objective N/V intact, dressing C/D/I, A&O x3, CMS intact Spoke with Dr Rodriguez this AM. Both incisions benign. Date Time Temp Pulse Resp B/P (MAP) Pulse Ox O2 Delivery O2 Flow Rate FiO2 01/15/17 08:05 37.2 64 22 124/70 (88) 95 Room Air 01/15/17 04:00 Room Air 01/15/17 03:35 37.3 62 20 118/68 (85) 94 Room Air 01/14/17 23:59 Room Air 01/14/17 23:30 37.1 67 17 141/76 (97) 91 Room Air 01/14/17 20:00 Room Air 01/14/17 19:05 37.0 69 20 109/59 (76) 90 Room Air 01/14/17 16:01 36.8 65 18 101/62 (75) 92 Room Air 01/14/17 16:00 Room Air 01/14/17 12:44 36.9 106 18 122/67 (85) 98 01/14/17 12:00 Room Air 01/14/17 10:06 57 Laboratory Results 24 Hours: 01/15/17 05:23 01/15/17 05:23 Test 01/15/17 05:23 01/15/17 06:57 Red Blood Count 4.18 M/uL (4.7-6.1) Mean Corpuscular Volume 93.5 fL (80-100) Mean Corpuscular Hemoglobin 32.1 pg (25-34) Mean Corpuscular Hemoglobin Concent 34.3 g/dl (32-36) RDW Standard Deviation 48.2 fL (36.4-46.3) RDW Coefficient of Variation 14.2 % (11.5-14.5) Mean Platelet Volume 10.2 fL (7.4-10.4) Anion Gap 3.0 mmol/L (3-11) Est Creatinine Clear Calc Drug Dose 103.0 ml/min Estimated GFR () 79.2 Estimated GFR (Non- 68.3 BUN/Creatinine Ratio 19.3 (10-20) Calcium Level 8.6 mg/dl (8.5-10.1) Bedside Glucose 176 mg/dl (70-99) Assessment & Plan Assessment: POD 2 s/p Left TSA/DCE Paroxysmal Atrial Fibrillation/post op tachycardia Hypokalemia, Hyponatremia CAD/HTN DM II CKD II Plan: Medical management - Spoke with Verenice SOLIS - likely plan to stay one more day. Plan for dc this weekend if remaining medically stable PT/OT Pain management - Oxycontin added with good results. DVT proph - Apixaban; STU's; SCD's Bowel Regimen Inhouse Planning Pain Management: Oxycontin, Morphine, PO Tylenol, Oxy IR DVT Prophylaxis: TEDs, SCDs, other (Apixaban) Discharge Planning Discharge Planning: home with oppt
[2017-01-15] MEDS: MAGNESIUM OXIDE 400 MG TAB PO SCH ×2 (10:10→20:49)
[2017-01-15] MEDS: APIXABAN 2.5 MG TAB PO SCH ×2 (10:10→20:48)
[2017-01-15] MEDS: METOPROLOL SUCC 50MG EXT REL TAB PO SCH ×2 (10:10→20:51)
[2017-01-15] MEDS: OXYCODONE HCL 10 MG TABCR (OXYCONTIN) PO SCH ×2 (12:45→21:07)
[2017-01-15] MEDS ORDERED: BISACODYL 10 MG SUPP PR PRN (13:45)
[2017-01-15] MEDS ORDERED: MAGNESIUM HYDROXIDE SUSP 30 ML UDC PO PRN (13:45)
--- NOTE | 2017-01-15 14:01 | Hospitalist Progress Note ---
Hospitalist Progress Note Date of Service Jan 15, 2017. (Verenice Tamayo .WILL) Subjective Pt evaluation today including: conversation w/ patient, physical exam, chart review, lab review, review of inpatient medication list Voiding: no voiding problems Mr. Buckner feels well and wants to go home. Pain in his shoulder is much better than yesterday. He has been having sob with exertion and states that this has been getting worse over the last couple years. He has not had any chest pain, palpitations or dizziness and has not noticed when he switches into a.fib. He is constipated ROS Constitutional: no chills, aches, sweats or fever Respiratory: no cough, sputum, or wheezing Cardiac: no chest pain, palpitations, edema, orthopnea or lightheadedness GI: no abdominal pain, nausea, vomiting, diarrhea : no dysuria or hesitancy Extremities: no joint pain or weakness Skin: no rash All Other Systems: Reviewed and Negative (Verenice Tamayo CRNP) Medications Medications Administered Medications (Trade) Dose Ordered Sig/Tara Route Start Time Stop Time Status Last Admin Dose Admin Cefazolin Sodium 15 ml @ 3 mls/min PREOP IV 01/13/17 06:00 01/13/17 18:00 DC 01/13/17 10:38 3 MLS/MIN Acetaminophen (Tylenol Tab) 1,000 mg PREOP PO 01/13/17 06:00 01/13/17 18:00 DC 01/13/17 08:30 1,000 MG Celecoxib (CeleBREX CAP) 200 mg PREOP PO 01/13/17 06:00 01/13/17 18:00 PR 01/13/17 08:30 200 MG Dexamethasone (Decadron Tab) 8 mg PREOP PO 01/13/17 06:00 01/13/17 18:00 PR 01/13/17 08:29 8 MG Famotidine (Pepcid Tab) 20 mg PREOP PO 01/13/17 06:00 01/13/17 18:00 DC 01/13/17 08:30 20 MG Metoclopramide HCl (Reglan Tab) 10 mg PREOP PO 01/13/17 06:00 01/13/17 18:00 DC 01/13/17 08:30 10 MG Lactated Ringer's 1,000 ml @ 15 mls/hr Q24H IV 01/13/17 06:00 01/14/17 05:59 DC 01/13/17 08:03 15 MLS/HR Bacitracin (Bacitracin Inj) 50,000 units STK-MED ONCE .ROUTE 01/13/17 10:14 01/13/17 10:15 DC 01/13/17 13:41 50,000 UNITS Epinephrine HCl (Adrenalin 5ml Syr) 5 mg STK-MED ONCE .ROUTE 01/13/17 10:17 01/13/17 10:18 DC 01/13/17 12:15 5 MG Finasteride (Proscar Tab) 5 mg QAM PO 01/14/17 09:00 02/13/17 08:59 01/15/17 08:14 5 MG Furosemide (Lasix Tab) 40 mg QAM PO 01/14/17 09:00 02/13/17 08:59 01/15/17 08:14 40 MG Isosorbide Mononitrate (Imdur Ext Rel Tab) 30 mg QAM PO 01/14/17 09:00 02/13/17 08:59 01/15/17 08:14 30 MG Lisinopril (Zestril Tab) 40 mg QAM PO 01/14/17 09:00 02/13/17 08:59 01/15/17 08:14 40 MG Metoprolol Succinate (Toprol Xl Tab) 50 mg BID PO 01/13/17 21:00 02/12/17 20:59 01/15/17 10:10 50 MG Tamsulosin HCl (Flomax Cap) 0.4 mg HS PO 01/13/17 21:00 02/12/17 20:59 01/14/17 21:28 0.4 MG Chlorthalidone (Hygroton Tab) 100 mg QAM PO 01/14/17 09:00 02/13/17 08:59 Future Hold 01/14/17 07:54 100 MG Magnesium Oxide (Mag-Ox Tab) 400 mg BID PO 01/13/17 21:00 02/12/17 20:59 01/15/17 10:10 400 MG Apixaban (Eliquis Tab) 5 mg BID PO 01/14/17 09:00 02/13/17 08:59 01/15/17 10:10 5 MG Pantoprazole Sodium (Protonix Tab) 40 mg QAM PO 01/14/17 09:00 02/13/17 08:59 01/15/17 08:13 40 MG Potassium Chloride 10 meq/ Sodium Chloride 1,005 ml @ 100 mls/hr Q10H3M IV 01/13/17 17:00 01/14/17 15:38 DC 01/14/17 12:52 100 MLS/HR Oxycodone HCl (Roxicodone Immediate Rel Tab) `1-2 TABS FOR PAIN `1 TAB... Q4H PRN PO 01/13/17 14:30 01/27/17 14:29 01/15/17 08:32 10 MG Acetaminophen (Tylenol Tab) 1,000 mg Q8H PO 01/13/17 22:00 02/12/17 21:59 01/15/17 05:47 1,000 MG Senna (Senokot Tab) 17.2 mg HS PO 01/13/17 21:00 02/12/17 20:59 01/14/17 21:29 17.2 MG Multivitamins (Multivitamin Tab) 1 tab DAILY PO 01/14/17 09:00 02/13/17 08:59 01/15/17 08:13 1 TAB Cefazolin Sodium 10 ml @ 2.5 mls/min Q8H IV 01/13/17 18:30 01/14/17 03:12 DC 01/14/17 01:38 2.5 MLS/MIN Morphine Sulfate (MoRPHine SULFATE INJ) 4 mg Q4HWA PRN IV 01/13/17 14:30 01/27/17 14:29 01/14/17 13:44 4 MG Metoprolol Tartrate (Lopressor Iv) 5 mg STK-MED ONCE .ROUTE 01/13/17 14:49 01/13/17 14:50 DC 01/13/17 14:52 5 MG Metoprolol Tartrate (Lopressor Iv) 5 mg NOW STAT IV 01/13/17 14:51 01/13/17 16:43 DC 01/13/17 17:07 5 MG Metoprolol Tartrate (Lopressor Iv) 5 mg STK-MED ONCE .ROUTE 01/13/17 15:12 01/13/17 15:13 DC 01/13/17 15:14 5 MG Metoprolol Tartrate (Lopressor Iv) 5 mg STK-MED ONCE .ROUTE 01/13/17 15:35 01/13/17 15:36 DC 01/13/17 15:38 5 MG Insulin Aspart (novoLOG ASPART) SLIDING SCALE G... ACHS IA 01/13/17 17:45 02/12/17 17:44 01/15/17 12:42 10 UNITS Insulin Glargine (Lantus Vial) 85 units QPM SC 01/14/17 21:00 01/15/17 07:54 DC 01/13/17 23:13 85 UNITS Potassium Chloride (Klor-Con Tab) 40 meq NOW STAT PO 01/14/17 09:01 01/14/17 09:04 DC 01/14/17 10:23 40 MEQ Potassium Chloride (Klor-Con Tab) 40 meq ONE ONCE PO 01/14/17 14:00 01/14/17 14:01 DC 01/14/17 12:53 40 MEQ Oxycodone HCl (Oxycontin Tab) 10 mg Q12 PO 01/14/17 10:00 01/28/17 09:59 01/15/17 12:45 10 MG Insulin Aspart (novoLOG ASPART) SLIDING SCALE G... TODAY@0000,0400 IA 01/15/17 00:00 01/15/17 04:01 DC 01/15/17 04:16 4 UNITS Polyethylene (Miralax Powder Packet) 17 gm BID PO 01/14/17 21:00 02/13/17 20:59 01/15/17 08:15 17 GM Bisacodyl (Dulcolax Tab) 5 mg NOW ONCE PO 01/14/17 17:45 01/14/17 17:46 DC 01/14/17 17:53 5 MG Insulin Glargine (Lantus Vial) 20 units ONE ONCE SC 01/15/17 08:00 01/15/17 08:01 DC 01/15/17 08:27 20 UNITS Potassium Chloride (Klor-Con Tab) 40 meq ONE ONCE PO 01/15/17 09:30 01/15/17 09:31 DC 01/15/17 12:38 40 MEQ Potassium Chloride (Klor-Con Tab) 40 meq 0821 ONCE PO 01/15/17 08:21 01/15/17 08:32 DC 01/15/17 10:10 40 MEQ (Verenice Tamayo CRNP) Objective Vital Signs Date Time Temp Pulse Resp B/P (MAP) Pulse Ox O2 Delivery O2 Flow Rate FiO2 01/15/17 12:05 36.8 69 20 106/63 (77) 94 Room Air 01/15/17 12:00 Room Air 01/15/17 08:05 37.2 64 22 124/70 (88) 95 Room Air 01/15/17 08:00 Room Air 01/15/17 04:00 Room Air 01/15/17 03:35 37.3 62 20 118/68 (85) 94 Room Air 01/14/17 23:59 Room Air 01/14/17 23:30 37.1 67 17 141/76 (97) 91 Room Air 01/14/17 20:00 Room Air 01/14/17 19:05 37.0 69 20 109/59 (76) 90 Room Air 01/14/17 16:01 36.8 65 18 101/62 (75) 92 Room Air 01/14/17 16:00 Room Air (Verenice Tamayo CRNP) Physical Exam Notes: General: no distress Eyes: normal inspection, PERLL Respiratory: chest non tender, clear to auscultation, normal breath sounds, no respiratory distress, no accessory muscle use Cardiac: regular rate and rhythm, no rub or gallop, no murmur, no edema, GI/: active bowel sounds, no abd pain or tenderness, soft, non distended Extremities: normal range of motion, normal strength, non tender Neuro/Psych: alert and oriented x 3, normal mood and affect Skin: normal color, dry (Verenice Tamayo CRNP) Laboratory Results Last 24 Hours Test 01/14/17 16:16 01/14/17 20:47 01/14/17 23:58 01/15/17 03:52 Bedside Glucose 175 mg/dl 173 mg/dl 165 mg/dl 182 mg/dl Test 01/15/17 05:23 01/15/17 06:57 01/15/17 13:31 White Blood Count 14.46 K/uL Red Blood Count 4.18 M/uL Hemoglobin 13.4 g/dL Hematocrit 39.1 % Mean Corpuscular Volume 93.5 fL Mean Corpuscular Hemoglobin 32.1 pg Mean Corpuscular Hemoglobin Concent 34.3 g/dl RDW Standard Deviation 48.2 fL RDW Coefficient of Variation 14.2 % Platelet Count 196 K/uL Mean Platelet Volume 10.2 fL Sodium Level 130 mmol/L Potassium Level 3.3 mmol/L Chloride Level 95 mmol/L Carbon Dioxide Level 32 mmol/L Anion Gap 3.0 mmol/L Blood Urea Nitrogen 21 mg/dl Creatinine 1.11 mg/dl Est Creatinine Clear Calc Drug Dose 103.0 ml/min Estimated GFR () 79.2 Estimated GFR (Non- 68.3 BUN/Creatinine Ratio 19.3 Random Glucose 179 mg/dl Calcium Level 8.6 mg/dl Bedside Glucose 176 mg/dl (Verenice Tamayo ., WILL) Assessment and Plan Mr. Buckner is a 66 year old man post op 01/13 left TSA. Pmhx Coronary artery disease status post an IL in 2008, hypertension, hypercholesterolemia, sleep apnea with the use of CPAP,diabetes mellitus with insulin, rheumatoid arthritis , osteoarthritis,obesity, BPH, CKD II and urine proteinuria. Post op - pain control per ortho - MOM and dulcolax suppository for constipation - monitor for acute blood loss - hgb stable Paroxysmal Atrial Fibrillation/post op tachycardia - continues having bursts of A.fib with max rate 110. Asymptomatic - Mag wnl - continue Eliquis Hyponatremia - held chlorthalidone - urine osmo, serum osmo, prp Hypokalemia - K low again today - repleated CAD/HTN - continue isosorbide, lisinopril, metoprolol DM II - Blood sugars better today than yesterday, spike in blood sugars post op may have been in part to steroid administration - Pharmacy glycemic management consult - Continue ss, home dose insulin glargine CKD II - avoid nephrotoxic agents when possible (Verenice Tamayo, WILL) Attending Attestation: Pt seen/examined, chart reviewed, care plan d/w WILL Tamayo. I agree w/ the castillo components of her documentation. Pt upset he is not going home. Still no bowel movement but passing flatus. eating fine. pain is better. monitor has largely been normal. VSS no fever gen - obese, NAD neck - no JVD heart - RRR lungs - CTA b/l abd - soft, NT, minimally distended ext - no edema, large dressing in place over left shoulder A/P: 1. hyponatremia - 2nd to double diuretic usage - stable 2. hypokalemia - 2nd to double diuretic usage - replete, BMP am 3. PAT vs PAF - 2nd to #2, pain,etc. Bursts are short-lived and w/o symptoms. Suspect the runs are PAT. Cont BB, eliquis for h/o PAF. 4. constipation - bowel regimen. 5. chronic HUTTON - check cxr today. updated agree with holding patient another 24 hours Kt Clark MD (Kt Clark MD)
[2017-01-15 14:32] LABS: CALCIUM 8.6 mg/dl (8.5-10.1); CREATININE 1.27 mg/dl (0.60-1.40); POTASSIUM 3.4 mmol/L (3.5-5.1)
--- NOTE | 2017-01-15 15:51 | DIAGNOSTIC IMAGING REPORT ---
CHEST 2 VIEWS ROUTINE CLINICAL HISTORY: sob dyspnea COMPARISON STUDY: 04/24/2016 FINDINGS: Mild cardiomegaly. Mild prominence of pulmonary vasculature slightly increased in the prior study. Diaphragms are smooth. Patient is status post left shoulder arthroplasty. IMPRESSION: Mild pulmonary vascular congestion. Mild cardiomegaly. Postoperative changes left shoulder. The above report was generated using voice recognition software. It may contain grammatical, syntax or spelling errors. Electronically signed by: Guilherme Linares M.D. 01/15/2017 3:50 PM Dictated Date/Time: 01/15/2017 3:49 PM
[2017-01-15] MEDS ORDERED: POTASSIUM CHLORIDE 10 MEQ TABCR PO STA (17:41)
[2017-01-15] MEDS ORDERED: FUROSEMIDE INJ 20 MG in SYRINGE 0 ML IV ONE (18:15)
[2017-01-15] MEDS: TAMSULOSIN HCL 0.4 MG CAP PO SCH (20:49)
[2017-01-15] MEDS: SENNA 8.6 MG TAB PO SCH (20:50)
[2017-01-15] MEDS ORDERED: INSULIN GLARGINE SC SCH (21:00)
[2017-01-15] MEDS ORDERED: MAGNESIUM OXIDE 400 MG TAB PO SCH (21:00)
[2017-01-16] VITALS (8 sets, daily range): BP systolic 112–170; BP diastolic 61–79; PULSE 62–75; TEMP 36.6–37.2; O2SAT 92–95
[2017-01-16] MEDS ORDERED: INSULIN ASPART 100 UNITS/ML 3 ML PEN SC SCH (02:00)
[2017-01-16] MEDS: ACETAMINOPHEN 500 MG TAB PO SCH ×2 (05:44→13:04)
[2017-01-16] MEDS: LISINOPRIL 40 MG TAB PO SCH (08:16)
[2017-01-16] MEDS: MAGNESIUM OXIDE 400 MG TAB PO SCH (08:17)
[2017-01-16] MEDS: MULTIVITAMIN TAB PO SCH (08:17)
[2017-01-16] MEDS: APIXABAN 2.5 MG TAB PO SCH (08:17)
[2017-01-16] MEDS: PANTOprazole SOD 40 MG TAB PO SCH (08:17)
[2017-01-16] MEDS: FUROSEMIDE 40 MG TAB PO SCH (08:17)
[2017-01-16] MEDS: FINASTERIDE 5 MG TAB PO SCH (08:17)
[2017-01-16] MEDS: METOPROLOL SUCC 50MG EXT REL TAB PO SCH (08:17)
[2017-01-16] MEDS: OXYCODONE HCL 10 MG TABCR (OXYCONTIN) PO SCH (08:18)
[2017-01-16] MEDS: ISOSORBIDE MONONITRATE 30 MG TABCR PO SCH (08:18)
[2017-01-16] MEDS: POLYETHYLENE (MIRALAX) 17 GM PACK PO SCH (08:18)
[2017-01-16] MEDS: INSULIN ASPART 100 UNITS/ML 3 ML PEN SC SCH ×3 (08:23→17:53)
[2017-01-16 08:30] LABS: CREATININE 1.01 mg/dl (0.60-1.40)
[2017-01-16] MEDS ORDERED: BISACODYL 10 MG SUPP PR ONE (09:15)
[2017-01-16 09:32] LABS: BUN/CREATININE RATIO 20.1 (10-20); CALCIUM 8.6 mg/dl (8.5-10.1); CREATININE 1.02 mg/dl (0.60-1.40); MAGNESIUM 2.3 mg/dl (1.8-2.4); POTASSIUM 3.6 mmol/L (3.5-5.1)
--- NOTE | 2017-01-16 10:16 | Orthopedic Progress Note ---
Orthopedic Progress Note Date of Service Jan 16, 2017. Subjective Post OP Day: 3 Reports: feeling well, SOB, pain controlled w PO medications, Denies: chest pain , nausea / vomiting, light headedness, calf pain Objective calves soft nontender, N/V intact, dressing C/D/I, A&O x3, toes mobile Date Time Temp Pulse Resp B/P (MAP) Pulse Ox O2 Delivery O2 Flow Rate FiO2 01/16/17 08:05 36.9 75 18 170/79 (109) 95 Room Air 01/16/17 07:48 36.6 62 18 137/75 (95) 93 Room Air 01/16/17 04:38 94 Room Air 2.0 01/16/17 03:02 37.2 65 20 113/68 (83) 94 Room Air 01/16/17 00:00 94 Room Air 2.0 01/15/17 22:54 37.0 67 20 121/69 (86) 93 Room Air 01/15/17 20:00 94 Room Air 2.0 01/15/17 19:04 37.5 74 18 111/63 (79) 94 Room Air 01/15/17 16:39 Room Air 01/15/17 15:56 37.6 74 20 108/59 (75) 93 Room Air 01/15/17 12:05 36.8 69 20 106/63 (77) 94 Room Air 01/15/17 12:00 Room Air Assessment & Plan Assessment: POD 3 s/p Left TSA/DCE Paroxysmal Atrial Fibrillation/post op tachycardia Hypokalemia, Hyponatremia CAD/HTN DM II CKD II Plan: Medical management - Spoke with Verenice SOLIS - likely plan to stay one more day. Plan for dc this weekend if remaining medically stable PT/OT Pain management - Oxycontin added with good results. DVT proph - Apixaban; STU's; SCD's Bowel Regimen Inhouse Planning Pain Management: Oxycontin, PO Tylenol, Oxy IR DVT Prophylaxis: TEDs, SCDs, other (Apixaban) Discharge Planning Discharge Planning: home with oppt Pain Management: PO Tylenol, Oxy IR DVT Prophylaxis: TEDs, other (eliquis) Discharge Planning Notes: Spoke with Dr. Clark this am. Electrolytes are improving and able to remove holter monitor. Medications changed based on Dr. Clark recommendations. Cleared by medicine to go home with OPPT today if able to have a BM and also if with ambulation he is able to maintain Oxygen levels.
[2017-01-16] MEDS ORDERED: RXC5 PO ×2 (10:31)
[2017-01-16] MEDS ORDERED: SPIR25TA PO ×2 (10:31)
[2017-01-16] MEDS ORDERED: SOD PHOSPHATE/SOD BIPHOSPHATE ENEMA 132 ML BTL PR ONE (15:45)
[2017-01-16] MEDS ORDERED: SENN8.6T7 PO ×2 (16:47)
[2017-01-16] MEDS ORDERED: POLY335025 PO ×2 (16:47)
--- NOTE | 2017-01-16 17:04 | Progress Note ---
Subjective Date of Service: Jan 16, 2017. Subjective Pt evaluation today including: conversation w/ patient, conversation w/ family ( at bedside), physical exam, chart review, lab review, conversation w/ plan consultant (orthopedic PA), review of inpatient medication list Pain: left shoulder but better than previous PO Intake: normal Voiding: no voiding problems tele last 24 hours w/o any PAT he feels good denies dyspnea at rest baseline dyspnea on exertion remains but no worse than usual o2 sats w/ walking (in room air) 92-96% he still has not had a bowel movement but passing plenty of flatus Review of Systems Constitutional: No fever Respiratory: + dyspnea on exertion, No cough, No dyspnea at rest Cardiac: No chest pain Abdomen: + constipation, No pain, No nausea, No vomiting Objective Vital Signs Date Time Temp Pulse Resp B/P (MAP) Pulse Ox O2 Delivery O2 Flow Rate FiO2 01/16/17 15:09 36.9 67 24 115/61 (79) 92 Room Air 01/16/17 12:00 Room Air 01/16/17 11:39 36.8 67 18 112/62 (79) 92 Room Air 01/16/17 08:05 36.9 75 18 170/79 (109) 95 Room Air 01/16/17 08:00 Room Air 01/16/17 07:48 36.6 62 18 137/75 (95) 93 Room Air 01/16/17 04:38 94 Room Air 2.0 01/16/17 03:02 37.2 65 20 113/68 (83) 94 Room Air 01/16/17 00:00 94 Room Air 2.0 01/15/17 22:54 37.0 67 20 121/69 (86) 93 Room Air 01/15/17 20:00 94 Room Air 2.0 01/15/17 19:04 37.5 74 18 111/63 (79) 94 Room Air Physical Exam General Appearance: no apparent distress, + obese ENT: pharynx normal Neck: no JVD Respiratory/Chest: lungs clear, no respiratory distress, no accessory muscle use Cardiovascular: regular rate, rhythm, no gallop, no murmur Abdomen: normal bowel sounds, non tender, soft, no organomegaly, + distended ( mild) Extremities: no pedal edema, + pertinent finding (left shoulder dressing in place ) Neurologic/Psychiatric: alert, oriented x 3 Laboratory Results Last 24 Hours Test 01/15/17 20:50 01/16/17 01:57 01/16/17 06:42 01/16/17 07:24 Bedside Glucose 152 mg/dl 152 mg/dl 171 mg/dl Sodium Level 132 mmol/L Potassium Level 3.6 mmol/L Chloride Level 97 mmol/L Carbon Dioxide Level 34 mmol/L Anion Gap 1.0 mmol/L Blood Urea Nitrogen 20 mg/dl Creatinine 1.02 mg/dl Est Creatinine Clear Calc Drug Dose 111.0 ml/min Estimated GFR () 87.7 Estimated GFR (Non- 75.7 BUN/Creatinine Ratio 20.1 Random Glucose 163 mg/dl Calcium Level 8.6 mg/dl Magnesium Level 2.3 mg/dl Test 01/16/17 11:25 Bedside Glucose 135 mg/dl Assessment and Plan 66yo male with: 1. hyponatremia - suspect due to double diuretic usage (chlorthalidone + lasix) . Chlorthalidone has been stopped. He will continue lasix with aldactone. Recommend outpatient BMP within 5 days. 2. hypokalemia - resolved. 2nd to "double" diuretic usage as noted above. I suggested that at discharge he take aldactone in jabier of chlorthalidone. He should not need as much K supplementation at home with this change and it will be easier for him to maintain a normal K level. 3. PAT vs PAF - likely had runs of PAT earlier this admission. These have not recurred in over 24 hours. He will remain on BB and eliquis for prior h/o PAF. 4. constipation - gave dulcolax suppos w/o relief. Then gave fleets enema with good results. He does not have symptoms of ileus (lack of appetite, nausea, emesis, severe bloating, etc). Likely this was due to scheduled oxycontin, anesthesia, etc. Send home w/ miralax + senna. 5. chronic HUTTON - o2 sats in RA today wnl. He has seen pulmonary & cardiology for this as outpatient. Follow-up with them for this chronic issue. 6. ?acute diastolic CHF - s/p lasix IV last pm. Lung exam, O2 sats, etc unchanged. Unsure if he ever had pulmonary edema. 7. T2DM - resume previous outpatient medication regimen. Glycemic control is very good at this time. ok from medical standpoint to d/c home. f/u with Dr. Waterman within 5 days. f/u orthopedics as scheduled. Kt Clark MD
--- NOTE | 2017-01-19 14:51 | DISCHARGE SUMMARY ---
DISCHARGE DIAGNOSIS: Degenerative joint disease, left shoulder with acromioclavicular joint arthritis. SECONDARY DIAGNOSES: Coronary artery disease status post myocardial infarction in 2009, hypertension, hypercholesterolemia, sleep apnea with use of CPAP, diabetes mellitus with use of insulin, rheumatoid arthritis, osteoarthritis, obesity, and benign prostatic hypertrophy. CONSULTS: Lashonda Valles DO COMPLICATIONS: None. PROCEDURES: Left total shoulder arthroplasty, distal clavicle excision and biceps tenodesis by Dr. Rodriguez on 01/13/2017. BRIEF HISTORY: As dictated in the history and physical. HOSPITAL SUMMARY: The patient was admitted on the above date and had the above-noted surgery performed, which he tolerated well. On his first postoperative day, he was sitting up at the bedside. He complained of pain that morning that kept him up most of the night and he was unable to sleep. The patient was pointed the area of his total shoulder incision where most of the pain was. He had no other complaints. His anesthesia block wore off last night and that he was moved to the telemetry for tachycardia and a history of atrial fibrillation. Dressings were clean, dry and intact. Neurovascularly, he was intact. He was moving his fingers well. Swelling was noted into the hand. Sensation was intact. Vital signs were stable. His pulse was fluctuating in the low 100s and mildly tachycardic and he was started on PT protocol and continued on medical management at this point in time. By his second postoperative day, he was feeling well. He was having some sinus issues, but other than that he felt well. He stated that he was feeling much better each day. Pain was controlled with the addition of OxyContin. He was hoping to go home; however, his electrolytes were still fluctuating and on the low side and that he might need to stay 1 more day at least to continue to try and build this back up. The patient was seen by Dr. Rodriguez that morning. His dressing was changed. Drain was removed. His wounds were benign and he was continued on his protocol. Medicine service continued to follow the patient and by 01/16/2017, he was remaining medically stable as well as orthopedically stable. He was feeling well. Dressings were intact. Toes were mobile. Medicine service had increased the potassium and his sodium was slowly rising. He was otherwise remaining medically stable and it was felt he could be discharged to home. For further review, please see chart. LAB AND X-RAY DATA: As per chart. DISCHARGE INSTRUCTIONS: The patient was discharged to home in satisfactory condition on 01/16/2017. DIET: Diabetic. ACTIVITY: Follow total shoulder arthroplasty instruction sheets and special care instructions as noted. The patient is to follow up with Dr. Rodriguez in 2 weeks. The patient is to call for an appointment if one has not been made for you. DISCHARGE MEDICATIONS: Oxycodone 5-10 mg p.o. q. 4 hours p.r.n., MiraLax 17 grams p.o. daily, Senokot 2 tabs p.o. q.a.m., and Aldactone 25 mg p.o. q. daily. Resume home meds as listed in the discharge instructions section. Stop taking chlorthalidone, [place], potassium citrate and aspirin. The patient was continued on his apixaban 5 mg p.o. b.i.d.
== END 2017-01-16 18:31 | disposition home or self-care (01) | DRG 483 ==
LOC: C.ACU 06:47 → C.2T 14:26 → ENRESERV 15:29 → CANRESERV 15:29 → CANBEDREQ 15:48 → ENRESERV 15:54
PROVIDERS: ADMIT Orthopaedic Surgery Sports Medicine; ATTEND Orthopaedic Surgery Sports Medicine
PROC: 0LS20ZZ Reposition Left Shoulder Tendon, Open Approach (ICD-10-PCS; principal; 2017-01-13 09:30)
PROC: 0RRK0JZ Replacement of Left Shoulder Joint with Synthetic Substitute, Open Approach (ICD-10-PCS; principal; 2017-01-13 09:30)
PROC: 0PBB0ZZ Excision of Left Clavicle, Open Approach (ICD-10-PCS; principal; 2017-01-13 09:30)
DX: M19.012 Primary osteoarthritis, left shoulder (principal); I50.31 Acute diastolic (congestive) heart failure; Z68.42 Body mass index [BMI] 45.0-49.9, adult; E87.1 Hypo-osmolality and hyponatremia; M75.22 Bicipital tendinitis, left shoulder; M75.112 Incomplete rotator cuff tear or rupture of left shoulder, not specified as traumatic; M75.82 Other shoulder lesions, left shoulder; E66.01 Morbid (severe) obesity due to excess calories; I48.0 Paroxysmal atrial fibrillation; R00.0 Tachycardia, unspecified; R09.02 Hypoxemia; T41.205A Adverse effect of unspecified general anesthetics, initial encounter; E87.6 Hypokalemia; K59.03 Drug induced constipation; T40.2X5A Adverse effect of other opioids, initial encounter; R06.00 Dyspnea, unspecified; I25.10 Atherosclerotic heart disease of native coronary artery without angina pectoris; I12.9 Hypertensive chronic kidney disease with stage 1 through stage 4 chronic kidney disease, or unspecified chronic kidney disease; E11.22 Type 2 diabetes mellitus with diabetic chronic kidney disease; N18.2 Chronic kidney disease, stage 2 (mild); G47.33 Obstructive sleep apnea (adult) (pediatric); M06.9 Rheumatoid arthritis, unspecified; N40.0 Benign prostatic hyperplasia without lower urinary tract symptoms; E78.5 Hyperlipidemia, unspecified; Z96.659 Presence of unspecified artificial knee joint; I25.2 Old myocardial infarction; Z95.5 Presence of coronary angioplasty implant and graft; Z87.891 Personal history of nicotine dependence; Z79.01 Long term (current) use of anticoagulants; Z79.4 Long term (current) use of insulin; Z79.82 Long term (current) use of aspirin; Z79.84 Long term (current) use of oral hypoglycemic drugs; Z79.899 Other long term (current) drug therapy; Z88.1 Allergy status to other antibiotic agents; Z88.6 Allergy status to analgesic agent

== ENCOUNTER → 2017-01-18 | Outpatient (CLI) | payer OTHER ==
[~2017-01-18] MED LIST changes: -ACETAMINOPHEN 500 MG TAB PO SCH; -BUPIVACAINE 0.25% 30 ML VIAL ONE; -CEFAZOLIN 3000MG IV PUSH 15 ML IV SCH; -CLONIDINE HCL 100 MCG/ML SYRINGE ONE; -CeleBREX 200 MG CAP PO SCH; -DEXAMETHASONE 4 MG TAB PO SCH; -EpINEphrine INJ 1MG/ML AMP 1 MG/ML AMP ONE; -FAMOTIDINE 20 MG TAB PO SCH; -LACTATED RINGER'S 1000ML 1,000 ML IV SCH; -LACTATED RINGER'S 1000ML IV SCH; -METOCLOPRAMIDE HCL 10 MG TAB PO SCH; +POLY335025 PO; -ROPIVACAINE 0.5% 5 MG/ML 30 ML VIAL ONE; +RXC5 PO; +SENN8.6T7 PO; +SPIR25TA PO
[2017-01-18 15:32] LABS: BLOOD UREA NITROGEN 22 mg/dl (7-18); BUN/CREATININE RATIO 17.1 (10-20); CALCIUM 8.9 mg/dl (8.5-10.1); CARBON DIOXIDE 30 mmol/L (21-32); CHLORIDE 99 mmol/L (98-107); CREATININE 1.28 mg/dl (0.60-1.40); GLUCOSE 158 mg/dl (70-99); MAGNESIUM 1.9 mg/dl (1.8-2.4); POTASSIUM 3.6 mmol/L (3.5-5.1); SODIUM 135 mmol/L (136-145)
== END | disposition home or self-care (01) ==
LOC: C.LAB 14:02
PROVIDERS: ATTEND Internal Medicine
DX: E87.1 Hypo-osmolality and hyponatremia (principal)

== ENCOUNTER → 2017-02-16 | Outpatient (CLI) | payer OTHER ==
[~2017-02-16] MED LIST changes: +ALBUAER INH; -ASPI81TA21 PO; -ATV/1 SL; -FOLI1TAB7 PO; -HYDR-5688 PO; +HYG/25 PO; +INSU100I2 SC; -POTA1080 PO; +PREG1CAP28 PO
[2017-02-16 16:31] LABS: HEMATOCRIT 41.8 % (42-52); HEMOGLOBIN 14.3 g/dL (14.0-18.0); MEAN CELL VOLUME 91.7 fL (80-100); MEAN CORPUSCULAR HEMOGLOBIN 31.4 pg (25-34); MEAN CORPUSCULAR HGB CONC 34.2 g/dl (32-36); MEAN PLATELET VOLUME 10.3 fL (7.4-10.4); PLATELET COUNT 233 K/uL (130-400); RED CELL DISTRIBUTION WIDTH CV 14.4 % (11.5-14.5); RED CELL DISTRIBUTION WIDTH SD 47.4 fL (36.4-46.3); WHITE BLOOD COUNT 9.44 K/uL (4.8-10.8)
[2017-02-16 17:21] LABS: ALBUMIN 3.3 gm/dl (3.4-5.0); BLOOD UREA NITROGEN 27 mg/dl (7-18); CALCIUM 9.3 mg/dl (8.5-10.1); CARBON DIOXIDE 32 mmol/L (21-32); CREATININE 1.23 mg/dl (0.60-1.40); GLUCOSE 98 mg/dl (70-99); PHOSPHORUS 3.2 mg/dl (2.5-4.9); POTASSIUM 3.4 mmol/L (3.5-5.1); SODIUM 138 mmol/L (136-145)
== END | disposition home or self-care (01) ==
LOC: C.LAB 15:01
PROVIDERS: ATTEND Internal Medicine Nephrology
DX: E55.9 Vitamin D deficiency, unspecified (principal); I12.9 Hypertensive chronic kidney disease with stage 1 through stage 4 chronic kidney disease, or unspecified chronic kidney disease; N18.2 Chronic kidney disease, stage 2 (mild); N20.0 Calculus of kidney; R60.9 Edema, unspecified; R80.9 Proteinuria, unspecified

== ENCOUNTER → 2017-04-05 | Outpatient (CLI) | payer OTHER ==
[~2017-04-05] MED LIST changes: -ALBUAER INH; -CHLO50TA PO; -HYG/25 PO; -INSU100I2 SC; -PREG1CAP28 PO; -SPIR25TA PO
--- NOTE | 2017-04-05 16:35 | DIAGNOSTIC IMAGING REPORT ---
R HIP UNILATERAL 2 VIEWS CLINICAL HISTORY: M25.559 Pain in [id number] pain COMPARISON: None. DISCUSSION: The bones and joint spaces appear intact. There is no evidence of fracture, dislocation or bony disease. There is no evidence for soft tissue swelling. Mild degenerative narrowing right hip joint space IMPRESSION: Negative study. Mild degenerative narrowing right hip joint space. The above report was generated using voice recognition software. It may contain grammatical, syntax or spelling errors. Electronically signed by: Guilherme Linares M.D. 04/05/2017 4:34 PM Dictated Date/Time: 04/05/2017 4:32 PM
== END ==
LOC: C.RAD1850 16:21
PROVIDERS: ATTEND Internal Medicine
DX: M16.11 Unilateral primary osteoarthritis, right hip (principal)

== ENCOUNTER → 2017-04-12 | Outpatient (CLI) | payer OTHER ==
[~2017-04-12] MED LIST changes: +OPTIRAY 320 IV PRN
--- NOTE | 2017-04-12 14:58 | DIAGNOSTIC IMAGING REPORT ---
CHEST COMBO ANGIOGRAPHY CLINICAL HISTORY: Thoracic aortic aneurysm. COMPARISON STUDY: Chest CT August 21, 2016. TECHNIQUE: Unenhanced and arterial phase imaging of the chest was performed. Injection of 94 cc Optiray 320 IV was uneventful. Sagittal and coronal reconstructions were viewed as well as maximal intensity projections on an independent 3-D workstation. FINDINGS: The heart is moderately enlarged. Dilatation of the ascending aorta, measuring 4.6 cm at the level of the main pulmonary artery is unchanged since CT of March 24, 2016. There is no evidence for dissection. There is no pericardial effusion. There are no enlarged thoracic lymph nodes. The central airways are patent. Several pulmonary nodules measuring up to 6 mm are unchanged since CT of March 24, 2016. These are likely benign. There are no new pulmonary nodules. No pneumothorax or pleural effusion is noted. There is no consolidation to suggest pneumonia. Bony thorax is unremarkable. There is fatty infiltration of the liver. IMPRESSION: 1. No change in mild dilatation of the ascending aorta, measuring 4.6 cm, since CT of March 24, 2016. No thoracic aortic dissection. 2. No acute intrathoracic findings. 3. No change in several pulmonary nodules which are likely benign. 4. Moderate cardiomegaly. 5. Fatty liver. Electronically signed by: Dimas Kohler M.D. 04/12/2017 2:57 PM Dictated Date/Time: 04/12/2017 2:42 PM
== END | disposition home or self-care (01) ==
LOC: C.CTS 14:08
PROVIDERS: ATTEND Internal Medicine Interventional Cardiology
DX: I77.810 Thoracic aortic ectasia (principal); R91.8 Other nonspecific abnormal finding of lung field; I51.7 Cardiomegaly; K76.0 Fatty (change of) liver, not elsewhere classified

== ENCOUNTER 2017-05-30 06:38 | Emergency (ER) | payer OTHER ==
[~2017-05-30] VITALS: Ht 185.4 cm; Wt 163.8 kg
[~2017-05-30 06:38] MED LIST changes: -OPTIRAY 320 IV PRN
[2017-05-30 06:41] VITALS: TEMP 36.4; Ht 185.4 cm; Wt 163.8 kg
[2017-05-30] MEDS ORDERED: ALBUT/IPRATROP 3MG/0.5MG NEB 3 ML VIAL INH STA (06:54)
--- NOTE | 2017-05-30 07:21 | DIAGNOSTIC IMAGING REPORT ---
CHEST ONE VIEW PORTABLE CLINICAL HISTORY: 66 years-old Male presenting with sob. TECHNIQUE: Portable upright AP view of the chest was obtained. COMPARISON: 01/15/2017. FINDINGS: Atherosclerosis of aortic arch. Cardiac silhouette mildly enlarged. Mild bronchial wall thickening. No focal opacity. No large effusion or pneumothorax. Partially visualized left shoulder arthroplasty. A surgical clip or skin kate is noted. IMPRESSION: 1. Mild cardiomegaly and possible congestive change versus bronchitis. No rula pulmonary edema or focal infiltrate to suggest pneumonia. Electronically signed by: Eliot Carney M.D. 05/30/2017 7:20 AM Dictated Date/Time: 05/30/2017 7:18 AM
[2017-05-30 07:49] VITALS: O2SAT 90
[2017-05-30 07:56] LABS: BASO % 0.6 %; BASO ABS # 0.04 K/uL (0-0.2); EOS % 7.2 %; EOS ABS # 0.52 K/uL (0-0.5); HEMATOCRIT 44.1 % (42-52); HEMOGLOBIN 15.4 g/dL (14.0-18.0); IG# 0.03 K/uL (0.00-0.02); LYMPH % 18.2 %; LYMPH ABS # 1.31 K/uL (1.2-3.4); MEAN CELL VOLUME 88.6 fL (80-100); MEAN CORPUSCULAR HEMOGLOBIN 30.9 pg (25-34); MEAN CORPUSCULAR HGB CONC 34.9 g/dl (32-36); MEAN PLATELET VOLUME 10.1 fL (7.4-10.4); MONO % 8.1 %; MONO ABS # 0.58 K/uL (0.11-0.59); NEUT % 65.5 %; PLATELET COUNT 202 K/uL (130-400); RED CELL DISTRIBUTION WIDTH CV 15.5 % (11.5-14.5); RED CELL DISTRIBUTION WIDTH SD 49.9 fL (36.4-46.3); WHITE BLOOD COUNT 7.18 K/uL (4.8-10.8)
[2017-05-30 08:00] LABS: PTT PATIENT 26.9 SECONDS (21.0-31.0)
[2017-05-30] MEDS ORDERED: ALBUAER INH (08:00)
[2017-05-30] MEDS ORDERED: HYG/25 PO (08:00)
[2017-05-30] MEDS ORDERED: PREG1CAP28 PO (08:00)
[2017-05-30] MEDS ORDERED: CHLO50TA PO (08:00)
[2017-05-30] MEDS ORDERED: INSU100I2 SC (08:00)
[2017-05-30 08:11] LABS: ALBUMIN 3.4 gm/dl (3.4-5.0); ALT/SGPT 25 U/L (12-78); AST/SGOT 15 U/L (15-37); BLOOD UREA NITROGEN 24 mg/dl (7-18); CALCIUM 8.8 mg/dl (8.5-10.1); CARBON DIOXIDE 27 mmol/L (21-32); CREATININE 1.23 mg/dl (0.60-1.40); GLUCOSE 141 mg/dl (70-99); POTASSIUM 3.3 mmol/L (3.5-5.1); SODIUM 138 mmol/L (136-145)
[2017-05-30 08:16] LABS: ALKALINE PHOSPHATASE 54 U/L (45-117); CKMB 2.5 ng/ml (0.5-3.6); TOTAL PROTEIN 6.6 gm/dl (6.4-8.2)
[2017-05-30 09:13] VITALS: PULSE 63; O2SAT 91
--- NOTE | 2017-05-30 09:27 | EMERGENCY ROOM VISIT NOTE ---
History Report prepared by Scribe: Delia Can Under the Supervision of: Dr. Dereje Forbes D.O. First contact with patient: 06:46 Chief Complaint: RESPIRATORY PROBLEMS Stated Complaint: HAVING TROUBLE BREATHING History of Present Illness The patient is a 66 year old male who presents to the Emergency Room with complaints of worsening breathing difficulty for the past 2 days. Last night while he was trying to sleep, he developed a cough, sorethroat and rhinorrhea, and his breathing symptoms worsened. He notes when he lays down flat or exerts himself, his breathing worsens. At 0200 this morning, he took Coricidin and Mucinex with minimal relief. The patient admits to a history of atrial fibrillation and states he follows with Dr. Hunt of [facility]. He does take daily Eliquis and notes he underwent a cardiac catheterization in 2017 that was unremarkable. His reports 3 months ago his O2 was 61% in Dr. Hunt office and he received a breathing treatment that provided good improvement. He is 94% on RA here in the ED. The patient admits to chronic swelling in his lower extremities, which he states has been unchanged. He denies any fevers or body aches. He admits to slight chest pain, but states this is constant for him. 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 A total of 10 systems reviewed and were otherwise negative. Past Medical & Surgical Medical Problems: (1) Arthritis of left acromioclavicular joint (2) Atrial flutter with rapid ventricular response (3) Congestive heart failure (4) Coronary artery disease (5) Diabetes (6) DJD of left shoulder (7) Dyslipidemia (8) Heart disease (9) Hypertension (10) Kidney disease Surgical Problems: (1) H/O hernia repair (2) History of appendectomy (3) History of carpal tunnel surgery of left wrist (4) History of cataract surgery (5) Hx of cardiac catheterization (6) Post-operative state (7) S/P cardiac catheterization (8) Status post left hip replacement (9) Status post left knee replacement (10) Status post right knee replacement Family History Cancer Social History Smoking Status: Never Smoker Alcohol Use: none Drug Use: none Marital Status: Housing Status: lives with family Occupation Status: employed Current/Historical Medications Scheduled Apixaban (Eliquis), 5 MG PO BID Chlorthalidone (Chlorthalidone), 100 MG PO QAM Cholecalciferol (Vitamin D), 1 TAB PO QAM Cyanocobalamin (Vitamin B12 500MCG), 1,000 MCG PO QAM Finasteride (Proscar), 5 MG PO QAM Furosemide (Lasix), 40 MG PO QAM Insulin Glargine (Lantus), 85 UNITS SC Q24H Insulin Lispro (Human) (Humalog Kwikpen), 18 UNITS SC WM Isosorbide Mononitrate Ext Rel (Imdur Ext Rel), 1 TAB PO QAM Lisinopril (Zestril), 40 MG PO QAM Magnesium Oxide (Magnesium Oxide), 400 MG PO BID Metformin Hcl (Glucophage), 1,000 MG PO BID Metoprolol Succinate (Toprol Xl), 50 MG PO DAILY Potassium Chloride (K-Tab), 20 MEQ PO TID Pregabalin (Lyrica), 75 MG PO BID Tamsulosin Hcl (Flomax), 0.4 MG PO HS Scheduled PRN Albuterol Sulfate (Proventil Hfa), 2 PUFFS INH Q4 PRN for SOB/Wheezing Allergies Coded Allergies: Gabapentin (Verified Allergy, Unknown, DIZZINESS, 05/30/17) Ciprofloxacin (Verified Adverse Reaction, Intermediate, DIAPHORETIC, NAUSEA, 05/30/17) Diclofenac (Verified Adverse Reaction, Intermediate, GO FROM ICE COLD TO HOT FLASHES, 05/30/17) Physical Exam Vital Signs Date Time Temp Pulse Resp B/P (MAP) Pulse Ox O2 Delivery O2 Flow Rate FiO2 05/30/17 08:38 67 19 92 05/30/17 08:30 140/84 05/30/17 08:08 66 20 91 05/30/17 08:00 137/71 05/30/17 07:49 90 Nasal Cannula 2.0 05/30/17 07:44 63 20 123/69 90 05/30/17 07:39 93 Room Air 05/30/17 07:38 59 17 97 05/30/17 07:32 123/69 05/30/17 07:08 64 17 91 05/30/17 06:56 63 05/30/17 06:50 93 Room Air 05/30/17 06:41 36.4 77 26 140/79 91 Room Air Physical Exam CONSTITUTIONAL/VITAL SIGNS: Reviewed / noted above. GENERAL: Non-toxic in appearance. INTEGUMENTARY: Warm, dry, and [place]. HEAD: Normocephalic. EYES: without scleral icterus or trauma. ENT/OROPHARYNX: clear and moist. LYMPHADENOPATHY/NECK: Is supple without lymphadenopathy or meningismus. RESPIRATORY: Diminished breath sounds bilaterally. CARDIOVASCULAR: Regular rate and rhythm. GI/ABDOMEN: Soft and nontender. No organomegaly or pulsatile mass. No rebound or guarding. Normal bowel sounds. EXTREMITIES: Warm and well perfused. BACK: No CVA tenderness. NEUROLOGICAL: Intact without focal deficits. PSYCHIATRIC: normal affect. MUSCULOSKELETAL: Normally developed with good muscle tone. Bilateral LE edema. Medical Decision & Procedures ER Provider Diagnostic Interpretation: Radiology results as stated below per my review and radiologist interpretation: CHEST ONE VIEW PORTABLE CLINICAL HISTORY: 66 years-old Male presenting with sob. TECHNIQUE: Portable upright AP view of the chest was obtained. COMPARISON: 01/15/2017. FINDINGS: Atherosclerosis of aortic arch. Cardiac silhouette mildly enlarged. Mild bronchial wall thickening. No focal opacity. No large effusion or pneumothorax. Partially visualized left shoulder arthroplasty. A surgical clip or skin kate is noted. IMPRESSION: 1. Mild cardiomegaly and possible congestive change versus bronchitis. No rula pulmonary edema or focal infiltrate to suggest pneumonia. Electronically signed by: Eliot Carney M.D. 05/30/2017 7:20 AM Laboratory Results 05/30/17 07:30 Red Blood Count 4.98, Mean Corpuscular Volume 88.6, Mean Corpuscular Hemoglobin 30.9, Mean Corpuscular Hemoglobin Concent 34.9, Mean Platelet Volume 10.1, Neutrophils (%) (Auto) 65.5, Lymphocytes (%) (Auto) 18.2, Monocytes (%) (Auto) 8.1, Eosinophils (%) (Auto) 7.2, Basophils (%) (Auto) 0.6, Neutrophils # (Auto) 4.70, Lymphocytes # (Auto) 1.31, Monocytes # (Auto) 0.58, Eosinophils # (Auto) 0.52, Basophils # (Auto) 0.04 05/30/17 07:30 Test 4/15/18 07:30 White Blood Count 7.18 K/uL (4.8-10.8) Red Blood Count 4.98 M/uL (4.7-6.1) Hemoglobin 15.4 g/dL (14.0-18.0) Hematocrit 44.1 % (42-52) Mean Corpuscular Volume 88.6 fL (80-100) Mean Corpuscular Hemoglobin 30.9 pg (25-34) Mean Corpuscular Hemoglobin Concent 34.9 g/dl (32-36) Platelet Count 202 K/uL (130-400) Mean Platelet Volume 10.1 fL (7.4-10.4) Neutrophils (%) (Auto) 65.5 % Lymphocytes (%) (Auto) 18.2 % Monocytes (%) (Auto) 8.1 % Eosinophils (%) (Auto) 7.2 % Basophils (%) (Auto) 0.6 % Neutrophils # (Auto) 4.70 K/uL (1.4-6.5) Lymphocytes # (Auto) 1.31 K/uL (1.2-3.4) Monocytes # (Auto) 0.58 K/uL (0.11-0.59) Eosinophils # (Auto) 0.52 K/uL (0-0.5) Basophils # (Auto) 0.04 K/uL (0-0.2) RDW Standard Deviation 49.9 fL (36.4-46.3) RDW Coefficient of Variation 15.5 % (11.5-14.5) Immature Granulocyte % (Auto) 0.4 % Immature Granulocyte # (Auto) 0.03 K/uL (0.00-0.02) Prothrombin Time 10.2 SECONDS (9.0-12.0) Prothromb Time International Ratio 1.0 (0.9-1.1) Activated Partial Thromboplast Time 26.9 SECONDS (21.0-31.0) Partial Thromboplastin Ratio 1.0 Anion Gap 9.0 mmol/L (3-11) Est Creatinine Clear Calc Drug Dose 93.5 ml/min Estimated GFR () 70.0 Estimated GFR (Non- 60.4 BUN/Creatinine Ratio 19.5 (10-20) Calcium Level 8.8 mg/dl (8.5-10.1) Total Bilirubin 0.7 mg/dl (0.2-1) Aspartate Amino Transf (AST/SGOT) 15 U/L (15-37) Alanine Aminotransferase (ALT/SGPT) 25 U/L (12-78) Alkaline Phosphatase 54 U/L (45-117) Total Creatine Kinase 160 U/L (39-308) Creatine Kinase MB 2.5 ng/ml (0.5-3.6) Creatine Kinase MB Ratio 1.6 (0-3.0) Troponin I < 0.015 ng/ml (0-0.045) Total Protein 6.6 gm/dl (6.4-8.2) Albumin 3.4 gm/dl (3.4-5.0) Globulin 3.2 gm/dl (2.5-4.0) Albumin/Globulin Ratio 1.1 (0.9-2) Laboratory results as stated above per my review. Medications Administered Medications (Trade) Dose Ordered Sig/Tara Route Start Time Stop Time Status Last Admin Dose Admin Albuterol/ Ipratropium (Duoneb) 3 ml NOW STAT INH 05/30/17 06:54 05/30/17 06:57 DC 05/30/17 07:18 3 ML ECG Per My Interpretation Indication: SOB/dyspnea Rate (beats per minute): 65 Rhythm: normal sinus Findings: no ectopy, other (No ST elevation) ED Course 0646: Previous medical records were reviewed. The patient was evaluated in room B2. A complete history and physical examination was performed. 0654: DuoNeb 3 ml INH. 0921: On reevaluation, the patient is feeling better. I discussed the results and findings with the patient. He verbalized agreement of the treatment plan. He was discharged home. Medical Decision the differential was considered includes acute myocardial infarction, acute coronary syndrome, myocarditis, pericarditis, pericardial effusions /tamponade, esophageal perforation, pulmonary embolism, pneumonia, pneumothorax, cardiomyopathy, congestive heart, anemia , COPD/asthma exacerbation. This is a 66-year-old male who presents to the ED with a chief complaint of shortness of breath. The patient reports that he has a history of atrial fibrillation and is chronically on Eliquis. The patient states that he has had worsening dyspnea over the past couple of days. He reports a slight cough and a sore throat since last night. The patient states that laying down and exertion seems to make his symptoms worse. The patient states that he took Coricidin and Mucinex as he thought this is related to an upper respiratory illness. The patient did have a cardiac catheterization a little over one year ago that only showed mild disease. His chest x-ray reveals mild cardiomegaly with congestive changes versus bronchitis. An EKG shows a normal sinus rhythm at a rate of 65. CBC and complete metabolic panel were unremarkable. Troponin is negative. The patient is chronically on Lasix for lower extremity edema. He states that his edema is chronic. He was given a DuoNeb treatment here. The patient was told the results of the test. He states that he feels comfortable going home. He was discharged. He was told to follow-up with his PCP for recheck in 1-2 days or return for worsening. Medication Reconcilliation Current Medication List: was personally reviewed by me Blood Pressure Screening Patient's blood pressure: Elevated blood pressure Blood pressure disposition: Referred to PCP Impression Primary Impression: URI, acute Additional Impression: Restrictive airway disease Scribe Attestation The scribe's documentation has been prepared under my direction and personally reviewed by me in its entirety. I confirm that the note above accurately reflects all work, treatment, procedures, and medical decision making performed by me. Departure Information Dispostion Home / Self-Care Referrals RV. Garcia MD (PCP) Patient Instructions My [facility] Additional Instructions Follow-up with your doctor in 1-2 days for recheck. Use your inhalers. Follow-up with your doctor for further care and evaluation in 1-2 days. Return to the emergency department for worsening or new symptoms or any concerns. You have been examined and treated today on an emergency basis only. This is not a substitute for, or an effort to provide, complete comprehensive medical care. It is impossible to recognize and treat all injuries or illnesses in a single emergency department visit. It is therefore important that you follow up closely with your doctor. Call as soon as possible for an appointment. Problem Qualifiers
[2017-05-30 09:31] VITALS: BP 131/75
== END 2017-05-30 09:49 | disposition home or self-care (01) ==
LOC: C.EDB 06:40
DX: J06.9 Acute upper respiratory infection, unspecified (principal); J44.9 Chronic obstructive pulmonary disease, unspecified; I48.91 Unspecified atrial fibrillation; I25.10 Atherosclerotic heart disease of native coronary artery without angina pectoris; E11.9 Type 2 diabetes mellitus without complications; E78.5 Hyperlipidemia, unspecified; I51.9 Heart disease, unspecified; I10 Essential (primary) hypertension; N18.9 Chronic kidney disease, unspecified; Z79.4 Long term (current) use of insulin; Z79.899 Other long term (current) drug therapy; Z88.8 Allergy status to other drugs, medicaments and biological substances

== ENCOUNTER → 2017-06-23 | Outpatient (CLI) | payer OTHER ==
[~2017-06-23] MED LIST changes: +ALBUAER INH; +CHLO50TA PO; -INSPMPHMLG SC; +INSU100I2 SC; -POLY335025 PO; +PREG1CAP28 PO; -RXC5 PO; -SENN8.6T7 PO
[2017-06-23 12:17] LABS: ALBUMIN 3.5 gm/dl (3.4-5.0); ALT/SGPT 22 U/L (12-78); AST/SGOT 16 U/L (15-37); BLOOD UREA NITROGEN 26 mg/dl (7-18); CARBON DIOXIDE 31 mmol/L (21-32); CHOLESTEROL 134 mg/dl (0-200); CREATININE 1.29 mg/dl (0.60-1.40); GLUCOSE 75 mg/dl (70-99); POTASSIUM 3.5 mmol/L (3.5-5.1); SODIUM 139 mmol/L (136-145)
[2017-06-23 12:28] LABS: ALKALINE PHOSPHATASE 60 U/L (45-117); LDL CHOLESTEROL CALCULATED 43 mg/dl; TOTAL PROTEIN 7.1 gm/dl (6.4-8.2)
== END | disposition home or self-care (01) ==
LOC: C.LAB 10:01
PROVIDERS: ATTEND Internal Medicine
DX: E11.319 Type 2 diabetes mellitus with unspecified diabetic retinopathy without macular edema (principal); Z79.4 Long term (current) use of insulin; E55.9 Vitamin D deficiency, unspecified; Z11.59 Encounter for screening for other viral diseases